=== PATIENT | female | born 1980 | race Caucasian/White ===

== ENCOUNTER 2018-02-07 17:50 | Emergency (ER) | payer SELFPAY ==
[2018-02-07 18:24] VITALS: BP 147/100; PULSE 63; RESP 16; TEMP 36.7; O2SAT 97; BMI 28.3
--- NOTE | 2018-02-07 18:30 | HMH.EDUTC ---
[facility] Disposition Clinical Impression: Skin problem Disposition: Home, Self-Care Condition on Discharge: Good Instructions: DI for Boils, Boil Additional Instructions: Call Surgical Clinic on Saturday for appointment If worsening of symptoms or life threating issues such as streaks, redness, or trouble breathing go straight to ER Follow up with family doctor in 12-24 hours or sooner if no improvement or worsening of symptoms Return if needed Take medication as prescribed Warm compresses to area may help to reduce pain and swelling Prescriptions: cephALEXin [Keflex 500mg Cap] 500 mg PO QID #40 cap Sulfamethoxazole/Trimethoprim [Bactrim DS tablet] 1 each PO BID #20 tab Referrals: Cody Gamble [Primary Care Provider] - Time of Disposition: 18:57 Medical Decision Making - Medical Records Medical records reviewed: Yes: I reviewed the patient's medical records. Vital Signs: 02/07/18 18:24 Temperature 98.1 F Temperature Source Temporal Artery Scan Pulse Rate [Right] 63 Respiratory Rate 16 Blood Pressure [Right Arm] 147/100 Blood Pressure Mean [Right Arm] 115 Blood Pressure Source [Right Arm] Automatic Cuff Blood Pressure Position [Right Arm] Sitting 02 Sat by Pulse Oximetry 97 Oxygen Delivery Method Room Air - Ray Inquiry Pt receiving controlled substance: No Ray was queried for this patient: No - Reevaluation(s) Time: 18:50 Reevaluation #1: No puss or drainage from the area observed could not obtain a wound culture at this time Patient state that she has had area like this before and MD aspirated puss from it to put her on antibiotic Patient informed due to location on face it is recommended that she see Dr Lozano in Surgery for possible treatment/drainage [facility] HPI - General Stated complaint: Boil L side of Face Mode of Arrival: Ambulatory Source of Information: Patient Limitations: No Limitations Description of Symptoms (Recalled from Triage Doc. by RN): ABCESS ON FACE HEENT Symptoms (Recalled from RN notes): No Resp Symptoms (Recalled from RN notes): No Skin Symptoms (Recalled from RN notes): Yes MS Symptoms (Recalled from RN notes): No Functional Status (Recalled from RN notes): N - History of Present Illness Provider Complaint: Patient state that she began to have swelling on the left lower jaw area State that she has a history of skin abcesses State that 3 days ago she began to have a small round area on left lower face State that she attempted to pop the area at home with latch pin however was unable to get anything out. State that today it continued to get bigger and now about dime sized and hard so she came in to get antibiotics - Related Data Home Medications Medication Instructions Recorded Confirmed alprazolam 0.5 mg tablet 0.5 mg PO TID tab 01/23/18 aspirin 81 mg tablet,delayed 81 mg PO DAILY tab 01/24/18 release Previous Rx's Medication Instructions Recorded bisoprolol fumarate 5 mg tablet 5 mg PO DAILY #30 tab 01/24/18 omeprazole 40 mg capsule,delayed 40 mg PO DAILY #30 cap 01/24/18 release Sulfamethoxazole/Trimethoprim 1 each PO BID #20 tab 02/07/18 [Bactrim DS tablet] cephALEXin [Keflex 500mg Cap] 500 mg PO QID #40 cap 02/07/18 Allergies Allergy/AdvReac Type Severity Reaction Status Date / Time tramadol AdvReac Nausea Verified 01/23/18 11:53 tylenol codeine #3 AdvReac Nausea Uncoded 01/23/18 11:53 - Worker's Comp Is this a Worker's Comp case?: No [facility] History I have reviewed the patient's past medical history: Yes Medical History: Reports:: Anxiety, Gastroesophageal Reflux Disease(GERD), Hyperlipidemia Other Surgeries: Yes: Dilation and Curettage, Hysterectomy-Total Comment: Cholecystectomy - Social History Smoking Status: Current every day smoker Tobacco Type: cigarettes # Packs/Day (cigarettes): 1 Alcohol Intake: never - Psychiatric History Expresses thoughts of harming self/others: None Suicide Plan Description: No Plan [facility]
[2018-02-07 19:02] VITALS: BP 143/90; PULSE 63; RESP 16; TEMP 36.7
== END 2018-02-07 19:03 | disposition home or self-care (01) ==
PROVIDERS: Emergency Provider Nurse Practitioner; Family Provider Internal Medicine Hematology & Oncology; PCP Family Medicine
DX: L02.01 Cutaneous abscess of face (principal); K21.9 Gastro-esophageal reflux disease without esophagitis; E78.5 Hyperlipidemia, unspecified; F41.9 Anxiety disorder, unspecified; F17.210 Nicotine dependence, cigarettes, uncomplicated; Z79.82 Long term (current) use of aspirin; Z88.6 Allergy status to analgesic agent
CPT/HCPCS: 99202

== ENCOUNTER → 2018-04-02 08:13 | Outpatient (CLI) | payer OTHER, SELFPAY ==
--- NOTE | 2018-04-02 08:16 | CA_ITS ---
PROCEDURE: 2-D M-mode and color Doppler study INDICATIONS FOR THE TEST: Chest pain + COPD Heart Murmur Tobacco Smoking+ Palpitations Fatigue Syncope Edema+ Hypertension Diabetes Mellitus Rheumatic Fever SOB+MCDOWELL Obesity Hyperlipidemia+ Family History HD Additional History PATIENT INFORMATION HEIGHT: 65 WEIGHT:185 GENDER: Female B/P:125/86 2-D/M-MODE INTERPRETATION: 2-D MEASUREMENTS OBSERVED VALUES IN CMS Right Ventricular Dimension (RVDd) 2.5 Interventricular Septum (Thickness)(IVsd) 1.1 Left Ventricular Internal Dimensions(LVIDd) 4.5 Left Ventricular Posterior Wall (Thickness)(LVPWd) 0.9 Aortic Root 2.3 Aortic Cusp Separation 2.1 Left Atrial Dimensions (LAD) 3.9 2D 1. Left atrium is normal size, left ventricle is normal size, there is no concentric left ventricular hypertrophy, visually estimated ejection fraction of 55% with no obvious regional wall motion abnormality. 2. The right atrium and right ventricle are normal size and contractility. 3. The aortic, mitral and tricuspid valvular grossly normal. 4. The pulmonic valve is poorly visualized. 5. No significant pericardial effusion noted. DOPPLER INTERROGATION: Doppler interrogation of the aortic, mitral and tricuspid valvular presence of mild mitral and tricuspid regurgitation, tricuspid and jet velocity is insufficient for calculation of the right ventricular systolic pressure, diastolic parameters are within normal range. CONCLUSION: 1. Normal left ventricular size, preserved left ventricular systolic pressure, visually estimated ejection fraction 55% with no obvious regional wall motion abnormality, diastolic parameters are within normal range. 2. Mild mitral and tricuspid regurgitation 3. No significant pericardial effusion noted.
== END ==
PROVIDERS: Family Provider Internal Medicine Hematology & Oncology; PCP Family Medicine; Visit Provider Internal Medicine
DX: R07.89 Other chest pain (principal)
CPT/HCPCS: 93017; 93306

== ENCOUNTER 2020-03-28 14:55 | Emergency (ER) | payer MEDICAID, SELFPAY ==
--- NOTE | 2020-03-28 14:51 | ECG_ITS ---
APPROVED REPORT Exam: Resting ECG HR:102 bpm ECG Measurements Heart Rate 102 AXES WI 136 P 61 QRSd 84 QRS 91 QT 364 T 48 QTc 474 <Conclusion> Sinus tachycardia Incomplete RBBB Rightward axis Borderline ECG Electronically signed by : Lino Alatorre, 03/29/2020 14:31:19
[2020-03-28 14:56] VITALS: BP 141/90; PULSE 106; RESP 20; TEMP 36.9; O2SAT 100; BMI 29.1
--- NOTE | 2020-03-28 15:06 | XR_ITS ---
PROCEDURE: XR CHEST PORTABLE CLINICAL HISTORY: chest pain COMPARISON: CXR CHEST(2 VIEWS-NOT PORTABLE) from 01/30/2017 CXR CHEST(2 VIEWS-NOT PORTABLE) from 09/06/2017 FINDINGS: The cardiomediastinal silhouette and pulmonary vascularity are within normal limits. The lungs are clear without infiltrates, suspicious nodules, or pleural effusions. No acute bony abnormalities. IMPRESSION: No acute findings. Dictated by: Pawel Winter MD 03/28/2020 15:22 Electronically signed by Pawel Witner MD in [place] 03/28/2020 15:22
--- NOTE | 2020-03-28 15:12 | HMH.EDANX ---
ED Disposition Clinical Impression: Acute anxiety Disposition: Home, Self-Care Condition on Discharge: Good Instructions: Anxiety and Panic Attacks (Alternative Therapy), Yoga May Help Reduce Anxiety and Stress, DI for Anxiety -- Adult Referrals: Provider,Referral, [Primary Care Provider] - 3 days - Critical Care Critical Care Time: No Attestation: On 03/28/20, the high probability of a clinically significant, sudden or life threatening deterioration of the following system(s) required my full and direct attention, intervention and personal management. The time I documented below is in addition to time spent performing reported procedures but includes the following listed in this critical care notation. Medical Decision Making - Medical Records Medical records reviewed: Yes: I reviewed the patient's medical records. - Ray Inquiry Pt receiving controlled substance: No Vital Signs: 03/28/20 14:56 Temperature 98.4 F Temperature Source Oral Pulse Rate [Right] 106 H Respiratory Rate 20 Blood Pressure [Right Arm] 141/90 H Blood Pressure Mean [Right Arm] 107 02 Sat by Pulse Oximetry 100 Orders (Tests/Meds): ORDERS Category Date Time Status Chest XR -- portable [XR chest portable] Stat Exams 03/28/20 15:06 Taken - Radiology Data #1 Image Reviewed: Yes I reviewed the patient's radiology image Preliminary Findings: Normal/NAD - ECG Data Tracing #1 I reviewed this ECG and interpreted as documented below: EKG at 1451 shows a sinus rhythm with a rate of 102. No acute ST segment elevation or depression. No hyperacute T waves. Normal intervals. EKG interpreted by me. Medical Decision Narrative: Patient here with anxiety and increased epigastric pain intermittently for several years. Most recent episode occurred today which prompted her visit here. Very low suspicion for ACS. EKG shows no signs of acute ischemia and chest x-ray shows no pneumonia, pneumothorax, pulmonary edema. She is asymptomatic at this time. Appropriate for outpatient follow-up with her primary care provider. We discussed other options for treatment of her anxiety including counseling and SSRIs, other nonaddictive options besides Xanax. She agrees to seek counseling and will follow-up with her PCP. Anxiety HPI - General Chief Complaint: PAIN Stated Complaint: anxiety,chest pain, shaking Time Seen by Provider: 03/28/20 15:13 Mode of Arrival: Ambulatory Limitations: No Limitations Description of Symptoms (Recalled from ER Triage Doc. by RN): States for several months she has been having episodes of CP, feeling shaking and dizzy. Denies soa, fever, or travel hx. - History of Present Illness HPI narrative: This is a 39-year-old female with a past medical history significant for anxiety, smoking who presents to the emergency department for evaluation of epigastric burning in association with exercising that occurred today just prior to arrival. States that she also sometimes gets dizzy with these episodes. She has had these episodes intermittently for 2 years and they have been attributed to panic attacks. They are sometimes associated with exercise, and sometimes not. She has seen cardiology for these episodes, had a stress test and was cleared from a cardiology standpoint. She has refused to take medication for anxiety because she used to take Xanax and did not like how it made her feel. She is tearful telling me all of this and states that she does not like feeling this way, but does not want to take medicine for anxiety. Currently she is asymptomatic. - Related Data Home Medications: Home Medications Medication Instructions Recorded Confirmed alprazolam 0.5 mg tablet 0.5 mg PO TID PRN tab 01/23/18 04/04/18 aspirin 81 mg tablet,delayed 81 mg PO DAILY tab 01/24/18 04/04/18 release Allergies/Adverse Reactions: Allergies Allergy/AdvReac Type Severity Reaction Status Date / Time tramadol A
[2020-03-28 16:01] VITALS: BP 141/90; PULSE 106; RESP 20; TEMP 36.9; O2SAT 100
[2020-04-14 10:31] LABS: POC Glucose,Bedside 134 (70-110)
== END 2020-03-28 16:02 | disposition home or self-care (01) ==
PROVIDERS: Emergency Provider Emergency Medicine
DX: F41.9 Anxiety disorder, unspecified (principal); F17.210 Nicotine dependence, cigarettes, uncomplicated
CPT/HCPCS: 71045; 82962; 93005; 99282

== ENCOUNTER → 2020-12-16 13:18 | Outpatient (CLI) | payer BC, SELFPAY ==
--- NOTE | 2020-12-16 13:19 | CT_ITS ---
PROCEDURE: CT CERVICAL SPINE WO CON CLINICAL INDICATION: pain right side neck Fell 2 weeks ago, Neck injury with pain, contusion/abrasion or hematoma, cervical sprain/strain the COMPARISON: No exams were available for comparison TECHNIQUE: Axial images obtained with sagittal and coronal reformats. All CT scans at the facility use one or more dose reduction, viz: automated exposure control, ma/kV adjustment per patient size (including targeted exams where dose is matched to indication, i.e. head), or iterative reconstruction technique. Axial spiral CT scanning performed of the cervical spine beginning at the base of the skull and continuing to the upper T-spine. 3-D multiplanar reconstruction with 3-D manipulation of volumetric data set in image rendering was completed by the radiologist and/or technologist with the supervision of the radiologist on independent workstation. FINDINGS: There is normal alignment. No fracture or dislocation is evident. No lytic or blastic change. There is minimal uncovertebral hypertrophy on at C4-C5 C5-C6 and C6-C7. This is causing minimal left lateral recess narrowing at these levels. The lung apices are clear. There are few scattered small cervical lymph nodes. IMPRESSION: 1. No acute fracture. 2. Minimal uncovertebral hypertrophy on the left from C4-C7. Dictated by: Pawel Winter MD 12/17/2020 06:37 Pawel Winter MD in [place] 12/17/2020 06:37
== END ==
PROVIDERS: PCP Family Medicine; Visit Provider Family Medicine
DX: M54.2 Cervicalgia (principal)
CPT/HCPCS: 72125

== ENCOUNTER 2021-06-12 19:53 | Emergency (ER) | payer BC, SELFPAY ==
--- NOTE | 2021-06-12 19:50 | ECG_ITS ---
APPROVED REPORT Exam: Resting ECG HR:74 bpm ECG Measurements Heart Rate 74 AXES MT 134 P 56 QRSd 84 QRS 23 QT 414 T 40 QTc 459 Conclusion Normal sinus rhythm Nonspecific T wave abnormality Abnormal ECG Electronically signed by : Compa Rose, 06/14/2021 21:39:53
[2021-06-12 19:53] VITALS: BP 146/88; PULSE 71; RESP 19; TEMP 36.8; O2SAT 98; BMI 28.3
[2021-06-12 20:00] VITALS: BMI 28.3
--- NOTE | 2021-06-12 20:00 | XR_ITS ---
PROCEDURE INFORMATION: Exam: XR Chest Exam date and time: 06/12/2021 8:00 PM Age: 40 years old Clinical indication: Other: Center of chest and upper abdomen pain; Patient HX: Pain in center of chest and upper abdomen. Smoker, no chest surgeries. ; Additional info: Chest pain TECHNIQUE: Imaging protocol: XR of the chest. Views: 2 views. COMPARISON: CR XR CHEST PORTABLE 03/28/2020 3:18 PM FINDINGS: Lungs: Unremarkable. No consolidation. Pleural spaces: Unremarkable. No pleural effusion. No pneumothorax. Heart/Mediastinum: Unremarkable. No cardiomegaly. Bones/joints: Unremarkable. IMPRESSION: No acute findings.
[2021-06-12 20:14] LABS: Basophils # 0.1 K/mm3 (0-0.2); Basophils % 0.8 % (0.1-2.0); Eosinophils # 0.2 K/mm3 (0.0-0.4); Eosinophils % 2.2 % (0.1-12.0); Hematocrit 42.7 % (37.0-47.0); Hemoglobin 14.3 g/dL (12.2-16.2); Lymphocytes # 2.9 K/mm3 (0.7-4.5); Lymphocytes % 30.7 % (10-50); Mean Corpuscular HGB Conc 33.6 g/dL (31.8-35.4); Mean Corpuscular Hemoglobin 29.8 pg (27.0-31.2); Mean Corpuscular Volume 88.5 fl (81-99); Mean Platelet Volume 7.6 fl (7.4-10.4); Monocytes # 0.6 K/mm3 (0.1-1.0); Monocytes % 6.2 % (1.7-9.3); Neutrophils # 5.6 K/mm3 (1.8-7.8); Platelet Count 244 K/mm3 (142-424); Red Blood Count 4.82 M/mm3 (4.20-5.40); Red Cell Distribution Width 13.7 % (11.5-17.5); White Blood Count 9.4 K/mm3 (4.8-10.8)
[2021-06-12 20:15] LABS: Coronavirus 19, PCR Not Detected (NotDetected); Influenza A, PCR Not Detected (NotDetected); Influenza B, PCR Not Detected (NotDetected)
[2021-06-12 20:21] LABS: Alanine Aminotransferase 40 U/L (12-78); Albumin Level 4.4 g/dl (3.5-5.0); Alkaline Phosphatase 102 U/L (38-126); Anion Gap 13.5 mEq/L (5-15); Aspartate Amino Transferase 39 U/L (14-36); Bilirubin,Direct 0.3 mg/dl (0.0-0.4); Bilirubin,Total 0.3 mg/dl (0.2-1.3); Blood Urea Nitrogen 11 mg/dl (7-17); Calcium 9.2 mg/dl (8.4-10.2); Carbon Dioxide 27 mmol/L (22.0-30.0); Chloride 108 mmol/L (98-107); Creatinine Clearance Estimated 133 mL/min (50-200); Estimated Glomerular Filt Rate 94 ml/min (>60); GFR (African American) 113 ML/MIN (>60); Glucose 92 mg/dl (74-100); Potassium 3.5 mmoL/L (3.5-5.1); Sodium 145 mmol/L (136-145); Total Protein,Serum 7.7 g/dl (6.3-8.2)
[2021-06-12 20:27] LABS: C-Reactive Protein 4.8 mg/L (0-4)
[2021-06-12 20:41] LABS: Procalcitonin 0.044 ng/mL (0.0-2.0)
[2021-06-12 20:49] LABS: Erythrocyte Sedimentation Rate 74 mm/hr (0-20)
[2021-06-12 21:01] VITALS: BP 116/72; PULSE 67; RESP 18; O2SAT 98
[2021-06-12 21:02] LABS: Troponin I < 0.01 ng/ml (0.00-0.034)
[2021-06-12 21:21] LABS: Microscopic, Urine URINE MICROSCOPIC (MICROSCOPIC)
[2021-06-12 21:24] LABS: Appearance,Urine CLEAR (Clear); Bilirubin,Urine Negative (Negative); Blood, Urine 1+ (Negative); Color,Urine YELLOW (Yellow); Glucose,Urine (UA) Negative (Negative); Ketones,Urine Negative (Negative); Leukocyte Esterase,Urine Negative (Negative); Nitrate,Urine Negative (Negative); PH,Urine 6.5 (5.0-8.5); Protein,Urine Negative (Negative); Urobilinogen,Urine 0.2 EU/dl (0.2)
[2021-06-12 21:30] VITALS: BP 117/71; PULSE 62; RESP 20; O2SAT 98
[2021-06-12 22:00] VITALS: BP 109/70; PULSE 62; RESP 16; O2SAT 98
[2021-06-12 22:02] LABS: Amorphous Sediment,Urine Trace /lpf; Squamous Epithelial Cell,Urine Occasional #/hpf (0-5)
--- NOTE | 2021-06-12 22:21 | HMH.EDNVD ---
ED Disposition Clinical Impression: Partial bowel obstruction Qualifiers: Intestinal obstruction type: unspecified Qualified Code(s): K56.600 - Partial intestinal obstruction, unspecified as to cause Disposition: Home, Self-Care Condition on Discharge: Good Instructions: DI for Small Bowel Obstruction Additional Instructions: see pcp for follow up and return if needed Referrals: Rishi Perry MD [Primary Care Provider] - - Critical Care Critical Care Time: No Attestation: On 06/12/21, the high probability of a clinically significant, sudden or life threatening deterioration of the following system(s) required my full and direct attention, intervention and personal management. The time I documented below is in addition to time spent performing reported procedures but includes the following listed in this critical care notation. Medical Decision Making - Medical Records Medical records reviewed: Yes: I reviewed the patient's medical records. - Ray Inquiry Pt receiving controlled substance: No Vital Signs: 06/12/21 19:53 Temperature 98.3 F Temperature Source Oral Pulse Rate [Right] 71 Respiratory Rate 19 Blood Pressure [Right Arm] 146/88 H Blood Pressure Mean [Right Arm] 107 Blood Pressure Source [Right Arm] Automatic Cuff 02 Sat by Pulse Oximetry 98 Oxygen Delivery Method Room Air - Lab Data Lab results reviewed: Yes: I reviewed the patient's lab results. Lab Results 06/12/21 19:55: WBC 9.4, RBC 4.82, Hgb 14.3, Hct 42.7, MCV 88.5, MCH 29.8, MCHC 33.6, RDW 13.7, Plt Count 244, MPV 7.6, Neut % (Auto) 60.0, Lymph % (Auto) 30.7, [place] % (Auto) 6.2, Eos % (Auto) 2.2, Baso % (Auto) 0.8, Neut # (Auto) 5.6, Lymph # (Auto) 2.9, [place] # (Auto) 0.6, Eos # (Auto) 0.2, Baso # (Auto) 0.1 06/12/21 19:55: Sodium 145, Potassium 3.5, Chloride 108 H, Carbon Dioxide 27, Anion Gap 13.5, BUN 11, Creatinine 0.70, Estimated Creat Clear 133, Estimated GFR 94, Est GFR ( Amer) 113, Glucose 92, Calcium 9.2, Total Bilirubin 0.3, Direct Bilirubin 0.3, Conjugated Bilirubin 0.0, Indirect Bilirubin 0.0, Unconjugated Bilirubin 0.0, AST 39 H, ALT 40, Alkaline Phosphatase 102, Troponin I < 0.01, C-Reactive Protein 4.8 H, Total Protein 7.7, Albumin 4.4 06/12/21 19:55: ESR 74 H 06/12/21 19:55: Procalcitonin 0.044 06/12/21 19:55: Lipase 127 06/12/21 20:10: SARS-CoV-2 (PCR) Not detected, Influenza A Untype (PCR) Not detected, Influenza Type B (PCR) Not detected 06/12/21 21:17: Urine Color Yellow, Urine Appearance Clear, Urine pH 6.5, Ur Specific [place] 1.010, Urine Protein Negative, Urine Glucose (UA) Negative, Urine Ketones Negative, Urine Blood 1+, Urine Nitrate Negative, Urine Bilirubin Negative, Urine Urobilinogen 0.2, Ur Leukocyte Esterase Negative, Urine RBC 3-5, Urine WBC 3-5, Ur Squamous Epith Cells Occasional, Amorphous Sediment Trace Result diagrams: 06/12/21 19:55 06/12/21 19:55 Orders (Tests/Meds): ED MEDICATIONS Generic Name Dose Route Start Last Admin Trade Name Freq PRN Reason Stop Dose Admin Sodium Chloride 1,000 mls @ 999 mls/hr 06/12/21 20:30 06/12/21 20:30 Sod Chlor 0.9% 1000ml Bag IV 06/12/21 21:30 999 mls/hr .Q1H1M MARINA Administration Sodium Chloride 8 ml 06/12/21 20:16 Sodium Chloride 0.9% 10ml Vial IV 07/12/21 20:15 NEEDED PRN dilute pepcid Discontinued Medications Generic Name Dose Route Start Last Admin Trade Name Freq PRN Reason Stop Dose Admin Aspirin 324 mg 06/12/21 20:16 06/12/21 20:16 Aspirin 81mg Chewable Tablet PO 06/12/21 20:17 324 mg ONCE ONE Administration Famotidine 20 mg 06/12/21 20:16 06/12/21 20:30 Famotidine 20mg/2ml Vial IV 06/12/21 20:17 20 mg ONCE ONE Administration Iopamidol 75 ml 06/12/21 23:01 06/12/21 23:02 Iopamidol-370 (76%);100ml Bottle IV 06/12/21 23:02 75 ml ONCE ONE Administration Metoclopramide HCl 10 mg 06/12/21 20:16 06/12/21 20:30 Metoclopramide Hcl 10mg/2ml Vial IVP 06/12/21 20:17 10 mg ON
--- NOTE | 2021-06-12 22:25 | CT_ITS ---
PROCEDURE INFORMATION: Exam: CT Abdomen And Pelvis With Contrast Exam date and time: 06/12/2021 10:25 PM Age: 40 years old Clinical indication: Nausea and vomiting and other: Epigastric pain; Prior surgery; Surgery date: 6+ months; Surgery type: Hysterectomy gb; Additional info: Epigastric right to left upper abd pain 4 days TECHNIQUE: Imaging protocol: Computed tomography of the abdomen and pelvis with contrast. Radiation optimization: All CT scans at this facility use at least one of these dose optimization techniques: automated exposure control; mA and/or kV adjustment per patient size (includes targeted exams where dose is matched to clinical indication); or iterative reconstruction. Contrast material: ISOVUE; Contrast volume: 75 ml; Contrast route: IV; COMPARISON: ABDPELW/O CT ABD PELVIS W/O CONTRAST 06/05/2015 6:08 PM FINDINGS: Liver: Normal. No mass. Gallbladder and bile ducts: The gallbladder has been removed. Pancreas: Normal. No ductal dilation. Spleen: Normal. No splenomegaly. Adrenal glands: Normal. No mass. Kidneys and ureters: Normal. No hydronephrosis. Stomach and bowel: There is fecal like material in the terminal ileum. The terminal ileum is dilated at 3.4 cm in diameter. Appendix: No evidence of appendicitis. Intraperitoneal space: Unremarkable. No free air. No significant fluid collection. Vasculature: Unremarkable. No abdominal aortic aneurysm. Lymph nodes: Unremarkable. No enlarged lymph nodes. Urinary bladder: Unremarkable as visualized. Reproductive: The uterus has been removed. Bones/joints: Unremarkable. No acute fracture. Soft tissues: Small fat containing umbilical hernia. IMPRESSION: 1. Dilated terminal ileum with fecal like material concerning for partial bowel obstruction. 2. Status post cholecystectomy and hysterectomy.
[2021-06-12 22:31] VITALS: BP 127/82; PULSE 65; RESP 14; O2SAT 98
--- NOTE | 2021-06-12 22:40 | PC.NURSE ---
Pt to rad
[2021-06-12 22:42] LABS: Lipase 127 U/L (23-300)
--- NOTE | 2021-06-12 23:08 | PC.NURSE ---
pt back from CT
[2021-06-12 23:28] LABS: Amylase 68 U/L (30-110)
[2021-06-12 23:42] LABS: Troponin I < 0.01 ng/ml (0.00-0.034)
[2021-06-13 00:12] VITALS: BP 127/87; PULSE 65; RESP 14; TEMP 36.8; O2SAT 98
== END 2021-06-13 00:14 | disposition home or self-care (01) ==
PROVIDERS: Emergency Provider Emergency Medicine; PCP Family Medicine
DX: K56.600 Partial intestinal obstruction, unspecified as to cause (principal); K21.9 Gastro-esophageal reflux disease without esophagitis; E78.5 Hyperlipidemia, unspecified; Z20.822 Contact with and (suspected) exposure to COVID-19; F17.210 Nicotine dependence, cigarettes, uncomplicated; Z79.899 Other long term (current) drug therapy
CPT/HCPCS: 71046; 74177; 80048; 80076; 81001; 82150; 83690; 84145; 84484; 85025; 85651; 86140; 93005; 96365; 96375; 99283; J2405; Q9967; U0003

== ENCOUNTER 2021-06-13 15:03 | Observation (INO) | payer BC, SELFPAY ==
[2021-06-13] VITALS (9 sets, daily range): BP systolic 114–156; BP diastolic 68–82; PULSE 53–81; RESP 16; TEMP 36.7–37.1; O2SAT 95–98; BMI 28.3; BMI 29.9
--- NOTE | 2021-06-13 15:38 | HMH.EDGENADL ---
ED Disposition Clinical Impression: Partial small bowel obstruction Disposition: Admitted as Observation Condition on Discharge: Fair Referrals: Rishi Perry MD [Primary Care Provider] - - Critical Care Critical Care Time: No Attestation: On 06/13/21, the high probability of a clinically significant, sudden or life threatening deterioration of the following system(s) required my full and direct attention, intervention and personal management. The time I documented below is in addition to time spent performing reported procedures but includes the following listed in this critical care notation. Medical Decision Making - Medical Records Medical records reviewed: Yes: I reviewed the patient's medical records. MR Comment: Reviewed emergency department record from 06/12/2021 along with the lab results and CT scan result. - Ray Inquiry Pt receiving controlled substance: No Ray was queried for this patient: Yes Vital Signs: 06/13/21 15:05 06/13/21 15:50 Temperature 98.1 F Temperature Source Oral Pulse Rate 81 Pulse Rate [Left] 78 Respiratory Rate 16 Blood Pressure 135/75 Blood Pressure [Right Arm] 156/68 H Blood Pressure Mean [Right Arm] 97 Blood Pressure Source Automatic Cuff Blood Pressure Source [Right Arm] Automatic Cuff Blood Pressure Position Sitting 02 Sat by Pulse Oximetry 98 96 Oxygen Delivery Method Room Air Room Air - Lab Data Lab Results 06/13/21 15:40: WBC 11.2 H, RBC 5.04, Hgb 14.9, Hct 45.3, MCV 89.8, MCH 29.5, MCHC 32.8, RDW 13.0, Plt Count 250, MPV 7.5, Neut % (Auto) 86.0 H, Lymph % (Auto) 10.3, [place] % (Auto) 3.0, Eos % (Auto) 0.5, Baso % (Auto) 0.1, Neut # (Auto) 9.7 H, Lymph # (Auto) 1.2, [place] # (Auto) 0.3, Eos # (Auto) 0.1, Baso # (Auto) 0.0, Total Counted 100, Neutrophils % (Manual) 86 H, Band Neutrophils % 5.0, Lymphocytes % (Manual) 8 L, Monocytes % (Manual) 1 L, Platelet Estimate Normal, RBC Morphology Normal 06/13/21 15:40: Sodium 143, Potassium 3.4 L, Chloride 110 H, Carbon Dioxide 23, Anion Gap 13.4, BUN 9, Creatinine 0.60, Estimated Creat Clear 155, Estimated GFR 112, Est GFR ( Amer) 135, Glucose 195 H D, Calcium 9.4, Total Bilirubin 0.4, AST 32, ALT 43, Alkaline Phosphatase 103, Total Protein 8.3 H, Albumin 4.6, Globulin 3.7 H, Albumin/Globulin Ratio 1.2, Lipase 58 Result diagrams: 06/13/21 15:40 06/13/21 15:40 - Physician Consults Physician Consulted: Bertha Time: 16:15 Reason -: Admission Comment/Response: Agrees to admit the patient to the hospital. We discussed the patient's clinical information, including history, exam, laboratory and radiology results and ED course. Per hospital procedure, I will write temporary bridge inpatient orders on the patient. Specific orders requested by the admitting physician: Surgery consult, n.p.o., IV fluids. Discussed steroids, he prefers no steroids at this time. General Adult HPI - General Chief complaint: Abdominal Pain Stated complaint: bowel blockage here in ER 06-12-21 Time Seen by Provider: 06/13/21 15:39 Mode of Arrival: Ambulatory Limitations: No Limitations Description of Symptoms (Recalled from ER Triage Doc. by RN): patient was seen last night in the ED for chest pain by Dr. Stone. Tests concluded that patient has a bowel obstruction. Patient was going to be admitted last night but patient refused stating that she needed to go home because today is her daughters birthday. patient states that she doesnt feel good. She states that she is having worse generalized abdominal pain and nausea. patient has not had a bowel movement today. - History of Present Illness HPI narrative: 4 to 5-day history of pain across her upper abdomen, sometimes in the lower abdomen. Vomiting up foamy white stuff. Persistent nausea. Poor appetite. Seen in this emergency department last night by Dr. Stone. CT scan of abdomen and pelvis showed partial small bowel obstruction. She states Dr. Stone wanted to admit her. The p
--- NOTE | 2021-06-13 15:49 | PC.NURSE ---
Calling Dr Perry at this time.
--- NOTE | 2021-06-13 15:55 | PC.NURSE ---
Dr stearns is in a pt room and will return call
[2021-06-13 15:57] LABS: Basophils % 0.1 % (0.1-2.0); Eosinophils # 0.1 K/mm3 (0.0-0.4); Eosinophils % 0.5 % (0.1-12.0); Hematocrit 45.3 % (37.0-47.0); Hemoglobin 14.9 g/dL (12.2-16.2); Lymphocytes # 1.2 K/mm3 (0.7-4.5); Lymphocytes % 10.3 % (10-50); Mean Corpuscular HGB Conc 32.8 g/dL (31.8-35.4); Mean Corpuscular Hemoglobin 29.5 pg (27.0-31.2); Mean Corpuscular Volume 89.8 fl (81-99); Mean Platelet Volume 7.5 fl (7.4-10.4); Monocytes # 0.3 K/mm3 (0.1-1.0); Neutrophils # 9.7 K/mm3 (1.8-7.8); Platelet Count 250 K/mm3 (142-424); Red Blood Count 5.04 M/mm3 (4.20-5.40); White Blood Count 11.2 K/mm3 (4.8-10.8)
[2021-06-13 16:02] LABS: Chloride 110 mmol/L (98-107); Potassium 3.4 mmoL/L (3.5-5.1); Sodium 143 mmol/L (136-145)
[2021-06-13 16:03] LABS: MANUAL DIFFERENTIAL MANUAL DIFFERENTIAL (MANUAL DIFF)
[2021-06-13 16:05] LABS: Alanine Aminotransferase 43 U/L (12-78); Albumin Level 4.6 g/dl (3.5-5.0); Albumin/Globulin Ratio 1.2 (1.1-1.8); Alkaline Phosphatase 103 U/L (38-126); Anion Gap 13.4 mEq/L (5-15); Aspartate Amino Transferase 32 U/L (14-36); Bilirubin,Total 0.4 mg/dl (0.2-1.3); Blood Urea Nitrogen 9 mg/dl (7-17); Calcium 9.4 mg/dl (8.4-10.2); Carbon Dioxide 23 mmol/L (22.0-30.0); Creatinine Clearance Estimated 155 mL/min (50-200); Estimated Glomerular Filt Rate 112 ml/min (>60); GFR (African American) 135 ML/MIN (>60); Globulin 3.7 g/dL (1.3-3.2); Glucose 195 mg/dl (74-100); Lipase 58 U/L (23-300); Total Protein,Serum 8.3 g/dl (6.3-8.2)
[2021-06-13 16:15] LABS: Lymphocytes % 8 % (10-50); Monocytes % 1 % (2-9); Neutrophils % 86 % (42-76); Total Cells Counted 100
[2021-06-13 16:16] LABS: Platelet Estimate Normal; RBC Morphology Normal
--- NOTE | 2021-06-13 16:18 | PC.NURSE ---
Notified plumbing warehouse helper of patient need of bed for admission at this time
--- NOTE | 2021-06-13 17:26 | PC.NURSE ---
report called to Jolene BARONE
--- NOTE | 2021-06-13 20:07 | HMH.GSCON ---
*Admission Date: 06/13/21 *Reason for consult:: Bowel obstruction *History of present illness: Patient is a 40-year-old female from [facility] with a history of Crohn's disease who presented to the emergency department on 06/12/21 with a 4-day history of chest pain, upper abdominal pain, radiation to the back. Work-up in the emergency department at that time included CT scan without oral contrast which revealed findings of dilated terminal ileum. This was consistent with partial bowel obstruction. Patient refused admission. She presented back to the emergency department today (06/13/21) with ongoing symptoms of upper abdominal pain with some nausea and vomiting and poor appetite. She was admitted. She has not had additional imaging. Last bowel movement was yesterday morning. She passed gas yesterday. Prior surgeries include laparoscopic cholecystectomy and laparoscopic assisted vaginal hysterectomy in September 2015. She states that she had similar episode several months ago where she had some vomiting. She has had some ongoing postprandial bloating since then. Review of Systems - Review of Systems Review of systems:: pertinent systems reviewed and negative unless documented below - *Neurologic Reports headache(s) [facility] History Medical History: Reports:: Anxiety, Gastroesophageal Reflux Disease(GERD), Hyperlipidemia Denies:: Cancer, Diabetes Mellitus Type 1, Diabetes Mellitus Type 2, MRSA *Have you ever received a pneumonia vaccine?: No *Have you received a flu vaccine this season?: No Other Surgeries: Yes: Dilation and Curettage, Hysterectomy-Total Amputation: No Fractures: No - *Social History Last grade of school completed: High school graduate Smoking Status: Current every day smoker Tobacco Type: cigarettes # Packs/Day (cigarettes): 1 Alcohol Intake: never Substance Use Type: denies use *Occupational Status:: unemployed Housing: house Household Members: spouse *Travel in the last 8 weeks: None - Psychiatric History Pschychiatric History:: Reports:: Anxiety Family Hx:: No significant family history Meds Home Medications Medication Instructions Recorded Confirmed Type No Known Home Medications 06/12/21 06/13/21 History Allergies Allergy/AdvReac Type Severity Reaction Status Date / Time tramadol AdvReac Nausea Verified 06/13/21 16:55 tylenol codeine #3 AdvReac Mild Nausea Uncoded 06/13/21 16:55 Exam Vital signs and Labs for Last 24 Hours: Temp Pulse Resp BP Pulse Ox 98.5 F 53 L 16 118/71 95 06/13/21 19:33 06/13/21 19:33 06/13/21 19:33 06/13/21 19:33 06/13/21 19:33 Laboratory Results - last 24 hr 06/13/21 15:40: WBC 11.2 H, RBC 5.04, Hgb 14.9, Hct 45.3, MCV 89.8, MCH 29.5, MCHC 32.8, RDW 13.0, Plt Count 250, MPV 7.5, Neut % (Auto) 86.0 H, Lymph % (Auto) 10.3, [place] % (Auto) 3.0, Eos % (Auto) 0.5, Baso % (Auto) 0.1, Neut # (Auto) 9.7 H, Lymph # (Auto) 1.2, [place] # (Auto) 0.3, Eos # (Auto) 0.1, Baso # (Auto) 0.0, Total Counted 100, Neutrophils % (Manual) 86 H, Band Neutrophils % 5.0, Lymphocytes % (Manual) 8 L, Monocytes % (Manual) 1 L, Platelet Estimate Normal, RBC Morphology Normal 06/13/21 15:40: Sodium 143, Potassium 3.4 L, Chloride 110 H, Carbon Dioxide 23, Anion Gap 13.4, BUN 9, Creatinine 0.60, Estimated Creat Clear 155, Estimated GFR 112, Est GFR ( Amer) 135, Glucose 195 H D, Calcium 9.4, Total Bilirubin 0.4, AST 32, ALT 43, Alkaline Phosphatase 103, Total Protein 8.3 H, Albumin 4.6, Globulin 3.7 H, Albumin/Globulin Ratio 1.2, Lipase 58 I & O for Last 24 hours: Intake & Output 06/11/21 06/12/21 06/13/21 06/14/21 11:59 11:59 11:59 11:59 Weight 180 lb Results - Labs 06/13/21 15:40 06/13/21 15:40 Laboratory Results - last 24 hr 06/13/21 15:40: WBC 11.2 H, RBC 5.04, Hgb 14.9, Hct 45.3, MCV 89.8, MCH 29.5, MCHC 32.8, RDW 13.0, Plt Count 250, MPV 7.5, Neut % (Auto) 86.0 H, Lymph % (Auto) 10.3, [place] % (Auto) 3.0, Eos % (Auto) 0.5, Baso % (Auto) 0.1, Neut #
[2021-06-14 03:41] VITALS: BP 116/71; PULSE 53; RESP 16; TEMP 36.7; O2SAT 98
--- NOTE | 2021-06-14 04:05 | PC.NURSE ---
pt is AxOx4, has remained on room air t/o shift, complains of nausea and pain in upper abdomen, treated for pain 2 x per MAR and nausea 1X per MAR this shift, ambulating to BR independently, remains NPO
[2021-06-14 05:00] VITALS: BMI 30.4
--- NOTE | 2021-06-14 06:00 | XR_ITS ---
PROCEDURE INFORMATION: Exam: XR Abdomen Exam date and time: 06/14/2021 6:00 AM Age: 40 years old Clinical indication: Condition or disease; Other: Bowel obstruction TECHNIQUE: Imaging protocol: XR of the abdomen. Views: 2 Views. Upright and supine views. COMPARISON: CT ABDOMEN PELVIS W CON 06/12/2021 10:50 PM FINDINGS: Gastrointestinal tract: Normal. No bowel dilation. Intraperitoneal space: Normal. No free air. Organs: There has been a cholecystectomy. Bones/joints: Unremarkable for age. IMPRESSION: No acute findings.
--- NOTE | 2021-06-14 07:27 | HMH.PHAVTE ---
[facility] Pharmacy VTE Monitoring - Patient Demographics Admission date: 06/13/21 Report Date: 06/14/21 Time: 07:27 Allergies/Adverse Reactions: Patient Allergies acetaminophen [From Tylenol-Codeine #3] Adverse Reaction (Verified 06/14/21 07:21) Nausea codeine [From Tylenol-Codeine #3] Adverse Reaction (Verified 06/14/21 07:21) Nausea tramadol Adverse Reaction (Verified 06/13/21 16:55) Nausea Height: 1.65 m Weight: 82.724 kg Patient Problems: Current Active Problems Partial small bowel obstruction (Acute) - VTE Risk Labs: VTE Related Lab Results Hgb 14.9 g/dL (12.2-16.2) 06/13/21 15:40 Hct 45.3 % (37.0-47.0) 06/13/21 15:40 Plt Count 250 K/mm3 (142-424) 06/13/21 15:40 BUN 9 mg/dl (7-17) 06/13/21 15:40 Creatinine 0.60 mg/dl (0.52-1.04) 06/13/21 15:40 Estimated Creat Clear 155 mL/min (50-200) 06/13/21 15:40 Was VTE Risk Assessment Performed: Yes VTE Score: 0 VTE Risk Level: Very Low Risk - Prophylaxis VTE Prophylaxis Ordered?: Yes Types of VTE Prophylaxis: TEDS Knee High Location of Applied Device: Bilateral Lower Extremeties
[2021-06-14 07:32] VITALS: BP 115/72; PULSE 47; RESP 16; TEMP 36.6; O2SAT 98
[2021-06-14 07:32] LABS: Basophils # 0.1 K/mm3 (0-0.2); Basophils % 0.5 % (0.1-2.0); Eosinophils # 0.1 K/mm3 (0.0-0.4); Eosinophils % 0.8 % (0.1-12.0); Hematocrit 37.4 % (37.0-47.0); Lymphocytes # 3.3 K/mm3 (0.7-4.5); Lymphocytes % 34.5 % (10-50); Mean Corpuscular HGB Conc 32.3 g/dL (31.8-35.4); Mean Corpuscular Hemoglobin 29.6 pg (27.0-31.2); Mean Corpuscular Volume 91.8 fl (81-99); Monocytes # 0.6 K/mm3 (0.1-1.0); Monocytes % 6.7 % (1.7-9.3); Neutrophils # 5.5 K/mm3 (1.8-7.8); Neutrophils % 57.6 % (37.0-80.0); Platelet Count 192 K/mm3 (142-424); Red Blood Count 4.07 M/mm3 (4.20-5.40); White Blood Count 9.5 K/mm3 (4.8-10.8)
[2021-06-14 07:35] LABS: Hemoglobin 12.1 g/dL (12.2-16.2)
[2021-06-14 07:40] LABS: Anion Gap 8.3 mEq/L (5-15); Blood Urea Nitrogen 11 mg/dl (7-17); Carbon Dioxide 28 mmol/L (22.0-30.0); Chloride 111 mmol/L (98-107); Creatinine Clearance Estimated 142 mL/min (50-200); Estimated Glomerular Filt Rate 94 ml/min (>60); GFR (African American) 113 ML/MIN (>60); Glucose 93 mg/dl (74-100); Potassium 4.3 mmoL/L (3.5-5.1); Sodium 143 mmol/L (136-145)
[2021-06-14 08:24] LABS: Calcium 8.4 mg/dl (8.4-10.2)
[2021-06-14 12:55] VITALS: BMI 30.4
--- NOTE | 2021-06-14 13:31 | HMH.GSPN ---
Subjective Narrative: Patient states that she feels about the same. Acute abdominal series this morning reveals no evidence of obstruction, relatively unremarkable. She does state that she has been passing some flatus. Progress Note: A&P Assessment and Plan for All Diagnoses:: No need for surgical intervention at this time. I will order a small bowel follow-through. Exam Vital signs and Labs for Last 24 Hours: Temp Pulse Resp BP Pulse Ox 97.9 F 47 L 16 115/72 98 06/14/21 07:32 06/14/21 07:32 06/14/21 07:32 06/14/21 07:32 06/14/21 07:32 Laboratory Results - last 24 hr 06/13/21 15:40: WBC 11.2 H, RBC 5.04, Hgb 14.9, Hct 45.3, MCV 89.8, MCH 29.5, MCHC 32.8, RDW 13.0, Plt Count 250, MPV 7.5, Neut % (Auto) 86.0 H, Lymph % (Auto) 10.3, [place] % (Auto) 3.0, Eos % (Auto) 0.5, Baso % (Auto) 0.1, Neut # (Auto) 9.7 H, Lymph # (Auto) 1.2, [place] # (Auto) 0.3, Eos # (Auto) 0.1, Baso # (Auto) 0.0, Total Counted 100, Neutrophils % (Manual) 86 H, Band Neutrophils % 5.0, Lymphocytes % (Manual) 8 L, Monocytes % (Manual) 1 L, Platelet Estimate Normal, RBC Morphology Normal 06/13/21 15:40: Sodium 143, Potassium 3.4 L, Chloride 110 H, Carbon Dioxide 23, Anion Gap 13.4, BUN 9, Creatinine 0.60, Estimated Creat Clear 155, Estimated GFR 112, Est GFR ( Amer) 135, Glucose 195 H D, Calcium 9.4, Total Bilirubin 0.4, AST 32, ALT 43, Alkaline Phosphatase 103, Total Protein 8.3 H, Albumin 4.6, Globulin 3.7 H, Albumin/Globulin Ratio 1.2, Lipase 58 06/14/21 06:57: WBC 9.5, RBC 4.07 L, Hgb 12.1 L D, Hct 37.4, MCV 91.8, MCH 29.6, MCHC 32.3, RDW 13.0, Plt Count 192, MPV 8.0, Neut % (Auto) 57.6, Lymph % (Auto) 34.5, [place] % (Auto) 6.7, Eos % (Auto) 0.8, Baso % (Auto) 0.5, Neut # (Auto) 5.5, Lymph # (Auto) 3.3, [place] # (Auto) 0.6, Eos # (Auto) 0.1, Baso # (Auto) 0.1 06/14/21 06:57: Sodium 143, Potassium 4.3 D, Chloride 111 H, Carbon Dioxide 28 D, Anion Gap 8.3, BUN 11, Creatinine 0.70, Estimated Creat Clear 142, Estimated GFR 94, Est GFR ( Amer) 113, Glucose 93 D, Calcium 8.4 D I & O for Last 24 hours: Intake & Output 06/12/21 06/13/21 06/14/21 06/15/21 11:59 11:59 11:59 11:59 Intake Total 1738 / 1738 Balance 1738 / 1738 Weight 182 lb 6 oz 182 lb 15.739 oz - *Routine Abdominal Exam Present: soft. Absent: tenderness
--- NOTE | 2021-06-14 13:33 | FL_ITS ---
PROCEDURE: FL SMALL BOWEL FOLLOW THROUGH CLINICAL INDICATION: ABDOMINAL PAIN, VOMITING, BOWEL OBSTRUCTION COMPARISON: No exams were available for comparison FINDINGS: Fluoroscopy time: 2 minutes and 11 seconds Small bowel is normal in caliber. There is rapid transit of contrast to the large bowel. No small bowel obstruction is evident. There is persistent narrowing at the ileocecal valve. The mucosa here has a slightly ?shaggy ?appearance. No fistula apparent. There is good flow contrast through this region. The remaining small bowel has an unremarkable appearance. IMPRESSION: Persistent narrowing at the ileocecal valve with some mucosal irregularity consistent with regional enteritis. No obstruction apparent. Dictated by: Pawel Winter MD 06/14/2021 17:09 Pawel Winter MD in [place] 06/14/2021 17:09
--- NOTE | 2021-06-14 13:38 | HMH.HP ---
*Admission Date: 06/13/21 *Chief complaint: abd pain *History of present illness: 40-year-old female from [facility] with a history of Crohn's disease who presented to the emergency department with a 4-day history of chest pain, upper abdominal pain, radiation to the back. Work-up in the emergency department at that time included CT scan without oral contrast which revealed findings of dilated terminal ileum. This was consistent with partial bowel obstruction. Patient refused admission. She presented back to the emergency department today (06/13/21) with ongoing symptoms of upper abdominal pain with some nausea and vomiting and poor appetite. She was admitted. She has not had additional imaging. Last bowel movement was yesterday morning. She passed gas yesterday. Prior surgeries include laparoscopic cholecystectomy and laparoscopic assisted vaginal hysterectomy in September 2015. She states that she had similar episode several months ago where she had some vomiting. She has had some ongoing postprandial bloating since then.- per [facility] History I have reviewed the patient's past medical history: Yes Medical History: Reports:: Anxiety, Gastroesophageal Reflux Disease(GERD), Hyperlipidemia Denies:: Cancer, Diabetes Mellitus Type 1, Diabetes Mellitus Type 2, MRSA *Have you ever received a pneumonia vaccine?: No *Have you received a flu vaccine this season?: No Other Surgeries: Yes: Dilation and Curettage, Hysterectomy-Total Amputation: No Fractures: No - *Social History Last grade of school completed: High school graduate Smoking Status: Current every day smoker Tobacco Type: cigarettes # Packs/Day (cigarettes): 1 Alcohol Intake: never Substance Use Type: denies use *Occupational Status:: unemployed Housing: house Household Members: spouse *Travel in the last 8 weeks: None - Psychiatric History Pschychiatric History:: Reports:: Anxiety Family Hx:: No significant family history Review of Systems - Review of Systems Review of systems:: pertinent systems reviewed and negative unless documented below - Constitutional Denies body ache(s), Denies fatigue, Denies weakness - Eyes Denies discharge - ENT Denies bleeding gums, Denies sore throat - *Cardiovascular Reports chest pain, Denies chest pain at rest - *Respiratory Denies change in phlegm color - *Gastrointestinal Reports abdominal pain, Reports cramping, Reports nausea, Reports vomiting - *Genitourinary Denies abnormal periods - *Musculoskeletal Denies joint pain - Integumentary/Breasts Denies sores - *Neurologic Reports headache(s), Denies abnormal hearing - Psychiatric Denies lack of enjoyment - Endocrine Denies excessive sweating - Hematologic/Lymphatic Denies easy bruising - Allergic/Immunologic Denies itchy eyes Meds Home Medications Medication Instructions Recorded Confirmed Type No Known Home Medications 06/12/21 06/13/21 History Allergies Allergy/AdvReac Type Severity Reaction Status Date / Time acetaminophen AdvReac Nausea Verified 06/14/21 07:21 [From Tylenol-Codeine #3] codeine AdvReac Nausea Verified 06/14/21 07:21 [From Tylenol-Codeine #3] tramadol AdvReac Nausea Verified 06/13/21 16:55 Exam Vital signs and Labs for Last 24 Hours: Temp Pulse Resp BP Pulse Ox 97.9 F 47 L 16 115/72 98 06/14/21 07:32 06/14/21 07:32 06/14/21 07:32 06/14/21 07:32 06/14/21 07:32 Laboratory Results - last 24 hr 06/13/21 15:40: WBC 11.2 H, RBC 5.04, Hgb 14.9, Hct 45.3, MCV 89.8, MCH 29.5, MCHC 32.8, RDW 13.0, Plt Count 250, MPV 7.5, Neut % (Auto) 86.0 H, Lymph % (Auto) 10.3, [place] % (Auto) 3.0, Eos % (Auto) 0.5, Baso % (Auto) 0.1, Neut # (Auto) 9.7 H, Lymph # (Auto) 1.2, [place] # (Auto) 0.3, Eos # (Auto) 0.1, Baso # (Auto) 0.0, Total Counted 100, Neutrophils % (Manual) 86 H, Band Neutrophils % 5.0, Lymphocytes % (Manual) 8 L, Monocytes % (Manual) 1 L, Platelet Estimate Normal, RBC Morphology Normal
--- NOTE | 2021-06-14 15:10 | PC.NURSE ---
REport received from Manfred Staples RN
[2021-06-14 16:00] VITALS: BP 163/94; PULSE 49; RESP 18; TEMP 36.3; O2SAT 98
--- NOTE | 2021-06-14 17:13 | P.PN_ITS ---
Subjective Narrative: Reviewed small bowel follow-through films with radiologist. No evidence of any obstruction. There is some luminal narrowing without obstruction at the terminal ileum. Progress Note: A&P (1) Partial small bowel obstruction Status: Acute (2) Chest pain Status: Acute (3) Crohns disease Status: Chronic Assessment and Plan for All Diagnoses:: Preliminary on small bowel follow-through reveals no evidence of obstruction with contrast through to colon. There is some luminal narrowing at the terminal ileum. Will start diet Exam Vital signs and Labs for Last 24 Hours: Temp Pulse Resp BP Pulse Ox 97.4 F L 49 L 18 163/94 H 98 06/14/21 16:00 06/14/21 16:00 06/14/21 16:00 06/14/21 16:00 06/14/21 16:00 Laboratory Results - last 24 hr 06/14/21 06:57: WBC 9.5, RBC 4.07 L, Hgb 12.1 L D, Hct 37.4, MCV 91.8, MCH 29.6, MCHC 32.3, RDW 13.0, Plt Count 192, MPV 8.0, Neut % (Auto) 57.6, Lymph % (Auto) 34.5, [place] % (Auto) 6.7, Eos % (Auto) 0.8, Baso % (Auto) 0.5, Neut # (Auto) 5.5, Lymph # (Auto) 3.3, [place] # (Auto) 0.6, Eos # (Auto) 0.1, Baso # (Auto) 0.1 06/14/21 06:57: Sodium 143, Potassium 4.3 D, Chloride 111 H, Carbon Dioxide 28 D, Anion Gap 8.3, BUN 11, Creatinine 0.70, Estimated Creat Clear 142, Estimated GFR 94, Est GFR ( Amer) 113, Glucose 93 D, Calcium 8.4 D I & O for Last 24 hours: Intake & Output 06/12/21 06/13/21 06/14/21 06/15/21 11:59 11:59 11:59 11:59 Intake Total 1738 / 1738 Balance 1738 / 1738 Weight 182 lb 6 oz 182 lb 15.739 oz
--- NOTE | 2021-06-14 18:34 | PC.NURSE ---
Pt is alert and oriented x4. Lungs are clear, she remains on RA. She has requested prn pain meds and zofran x1 for nausea and pain since assuming care of patient. Relief noted on reassessment. No complaints other than nausea and abd pain. Prn pain meds and zofran administered x1 (since i've assumed care of patient) with relief noted on reassessment.
[2021-06-14 20:00] VITALS: BP 110/72; PULSE 53; RESP 16; TEMP 36.7; O2SAT 97
[2021-06-15 04:00] VITALS: BP 105/68; PULSE 60; RESP 16; TEMP 36.9; O2SAT 97
[2021-06-15 05:00] VITALS: BMI 31.1
[2021-06-15 05:57] LABS: Basophils # 0.1 K/mm3 (0-0.2); Basophils % 0.7 % (0.1-2.0); Eosinophils # 0.1 K/mm3 (0.0-0.4); Eosinophils % 1.4 % (0.1-12.0); Hematocrit 34.4 % (37.0-47.0); Hemoglobin 11.6 g/dL (12.2-16.2); Lymphocytes # 2.9 K/mm3 (0.7-4.5); Lymphocytes % 37.9 % (10-50); Mean Corpuscular HGB Conc 33.7 g/dL (31.8-35.4); Mean Corpuscular Volume 89.2 fl (81-99); Mean Platelet Volume 7.6 fl (7.4-10.4); Monocytes # 0.4 K/mm3 (0.1-1.0); Monocytes % 5.8 % (1.7-9.3); Neutrophils # 4.1 K/mm3 (1.8-7.8); Neutrophils % 54.2 % (37.0-80.0); Platelet Count 181 K/mm3 (142-424); Red Blood Count 3.85 M/mm3 (4.20-5.40); Red Cell Distribution Width 13.5 % (11.5-17.5); White Blood Count 7.6 K/mm3 (4.8-10.8)
[2021-06-15 06:34] LABS: Anion Gap 8.8 mEq/L (5-15); Blood Urea Nitrogen 6 mg/dl (7-17); Carbon Dioxide 25 mmol/L (22.0-30.0); Chloride 113 mmol/L (98-107); Creatinine Clearance Estimated 170 mL/min (50-200); Estimated Glomerular Filt Rate 112 ml/min (>60); GFR (African American) 135 ML/MIN (>60); Glucose 87 mg/dl (74-100); Potassium 3.8 mmoL/L (3.5-5.1); Sodium 143 mmol/L (136-145)
--- NOTE | 2021-06-15 06:58 | P.PN_ITS ---
Subjective Narrative: She states that she feels a bit better . She wishes to go home and have further evaluation as an outpatient. Progress Note: A&P (1) Partial small bowel obstruction Status: Acute (2) Chest pain Status: Acute (3) Crohns disease Status: Chronic Assessment and Plan for All Diagnoses:: Small bowel follow-through reveals no sign of obstruction. She most likely has had an exacerbation of her Crohn's disease. She wishes to go home and have outpatient follow-up. Medical management of Crohn's Gastroenterology evaluation (likely outpatient) pending Exam Vital signs and Labs for Last 24 Hours: Temp Pulse Resp BP Pulse Ox 98.5 F 60 16 105/68 L 97 06/15/21 04:00 06/15/21 04:00 06/15/21 04:00 06/15/21 04:00 06/15/21 04:00 Laboratory Results - last 24 hr 06/14/21 06:57: WBC 9.5, RBC 4.07 L, Hgb 12.1 L D, Hct 37.4, MCV 91.8, MCH 29.6, MCHC 32.3, RDW 13.0, Plt Count 192, MPV 8.0, Neut % (Auto) 57.6, Lymph % (Auto) 34.5, [place] % (Auto) 6.7, Eos % (Auto) 0.8, Baso % (Auto) 0.5, Neut # (Auto) 5.5, Lymph # (Auto) 3.3, [place] # (Auto) 0.6, Eos # (Auto) 0.1, Baso # (Auto) 0.1 06/14/21 06:57: Sodium 143, Potassium 4.3 D, Chloride 111 H, Carbon Dioxide 28 D, Anion Gap 8.3, BUN 11, Creatinine 0.70, Estimated Creat Clear 142, Estimated GFR 94, Est GFR ( Amer) 113, Glucose 93 D, Calcium 8.4 D 06/15/21 05:23: WBC 7.6, RBC 3.85 L, Hgb 11.6 L, Hct 34.4 L, MCV 89.2, MCH 30.0, MCHC 33.7, RDW 13.5, Plt Count 181, MPV 7.6, Neut % (Auto) 54.2, Lymph % (Auto) 37.9, [place] % (Auto) 5.8, Eos % (Auto) 1.4, Baso % (Auto) 0.7, Neut # (Auto) 4.1, Lymph # (Auto) 2.9, [place] # (Auto) 0.4, Eos # (Auto) 0.1, Baso # (Auto) 0.1 06/15/21 05:23: Sodium 143, Potassium 3.8, Chloride 113 H, Carbon Dioxide 25, Anion Gap 8.8, BUN 6 L D, Creatinine 0.60, Estimated Creat Clear 170, Estimated GFR 112, Est GFR ( Amer) 135, Glucose 87, Calcium 8.0 L I & O for Last 24 hours: Intake & Output 06/12/21 06/13/21 06/14/21 06/15/21 11:59 11:59 11:59 11:59 Intake Total 1738 / 1738 2314 / 2314 Balance 1738 / 1738 2314 / 2314 Weight 182 lb 6 oz 187 lb 3 oz Radiology Reports for the Last 24 Hours: Small bowel follow-through yesterday revealed no sign of obstruction. - Constitutional no acute distress - *Routine Respiratory Exam Absent: respiratory distress - *Routine Cardiovascular Exam Present: RRR
[2021-06-15 07:37] VITALS: BP 119/80; PULSE 62; RESP 19; TEMP 36.6; O2SAT 95
--- NOTE | 2021-06-15 13:45 | DIET.NUTRFU ---
Pt states her symptoms are about the same but she is ready to go home, encouraged to f/u as GI OP. She tolerated about 50% of her liquid meals. Pt has been provided with diet edu/counseling for Crohns and encouraged to reach out with questions/concerns at any time post dc.
[2021-06-15 15:12] VITALS: BP 120/72; PULSE 67; RESP 18; TEMP 36.6; O2SAT 96
--- NOTE | 2021-06-15 16:04 | HMH.DCSUM ---
General - General Admission date:: 06/13/21 Discharge date: 06/15/21 HPI HPI: 40-year-old female from [facility] with a history of Crohn's disease who presented to the emergency department with a 4-day history of chest pain, upper abdominal pain, radiation to the back. Work-up in the emergency department at that time included CT scan without oral contrast which revealed findings of dilated terminal ileum. This was consistent with partial bowel obstruction. Patient refused admission. She presented back to the emergency department today (06/13/21) with ongoing symptoms of upper abdominal pain with some nausea and vomiting and poor appetite. She was admitted. She has not had additional imaging. Last bowel movement was yesterday morning. She passed gas yesterday. Prior surgeries include laparoscopic cholecystectomy and laparoscopic assisted vaginal hysterectomy in September 2015. She states that she had similar episode several months ago where she had some vomiting. She has had some ongoing postprandial bloating since then.- per [facility] Hospital Course Hospital Course: 40-year-old female from [facility] with a history of Crohn's disease who presented to the emergency department with a 4-day history of chest pain, upper abdominal pain, radiation to the back. Work-up in the emergency department at that time included CT scan without oral contrast which revealed findings of dilated terminal ileum. This was consistent with partial bowel obstruction. Patient refused admission. She presented back to the emergency department today (06/13/21) with ongoing symptoms of upper abdominal pain with some nausea and vomiting and poor appetite. She was admitted. She has not had additional imaging. Last bowel movement was yesterday morning. She passed gas yesterday. Prior surgeries include laparoscopic cholecystectomy and laparoscopic assisted vaginal hysterectomy in September 2015. She states that she had similar episode several months ago where she had some vomiting. She has had some ongoing postprandial bloating since then.- per [facility] 06/14/21 AbdXR: FINDINGS: Gastrointestinal tract: Normal. No bowel dilation. Intraperitoneal space: Normal. No free air. Organs: There has been a cholecystectomy. Bones/joints: Unremarkable for age. IMPRESSION: No acute findings. Electronically signed by Leigh Mascorro MD General Surgery has seen and recommends: Small bowel follow-through reveals no sign of obstruction. She most likely has had an exacerbation of her Crohn's disease. She wishes to go home and have outpatient follow-up. Medical management of Crohn's Gastroenterology evaluation (likely outpatient) pending A.M. lab work reveals no leukocytosis, hemoglobin and hematocrit stable Chemistries nonactionable 40-year-old female patient sitting up in bed resting quietly, at bedside. She reports she had a good evening, she admits less abdominal pain and nausea during the night. She reports being up walking in room and has tolerated a regular diet. Discussed discharge home with her, she is in agreement to this. She will follow-up with PCP and GI. PLAN: 1. We will discharge home today 2. Follow-up with PCP in 1 week 3. Follow-up with GI in 1 to 2 weeks 4. Bentyl per instruction 5. Zofran per instruction Objective Vital signs: Temp Pulse Resp BP Pulse Ox 97.9 F 67 18 120/72 96 06/15/21 15:12 06/15/21 15:12 06/15/21 15:12 06/15/21 15:12 06/15/21 15:12 no acute distress - *Routine HEENT Exam Head: Present: normocephalic Eye: Present: EOMI ENT: Present: mucous membranes moist - *Routine Neck Exam Present: trachea midline. Absent: tracheal deviation - *Routine Respiratory Exam Present: CTA bilaterally. Absent: accessory muscle use - *Routine Cardiovascular Exam Present: RRR - *Routine Abdominal Exam Present: soft, normoactive bowel sounds, ten
== END 2021-06-15 16:45 | disposition home or self-care (01) ==
LOC: ER 16:39 → 2ND 17:36
PROVIDERS: Nurse Practitioner Family; Admitting Provider Emergency Medicine; Emergency Provider Emergency Medicine; PCP Family Medicine; Visit Provider Family Medicine
DX: K50.90 Crohn's disease, unspecified, without complications (principal); R07.9 Chest pain, unspecified; F17.210 Nicotine dependence, cigarettes, uncomplicated; F41.9 Anxiety disorder, unspecified; K21.9 Gastro-esophageal reflux disease without esophagitis; E78.5 Hyperlipidemia, unspecified
CPT/HCPCS: 74019; 74250; 80048; 80053; 83690; 85007; 85025; 96365; 96375; 99284; 99291; G0378; J2405

== ENCOUNTER 2021-10-04 01:22 | Emergency (ER) | payer MEDICAID, SELFPAY ==
[2021-10-04 01:23] VITALS: BP 139/73; PULSE 84; RESP 18; TEMP 37.2; O2SAT 98; BMI 40.2
--- NOTE | 2021-10-04 01:43 | HMH.EDABDPAI ---
ED Disposition Clinical Impression: Abdominal pain Qualifiers: Abdominal location: generalized Qualified Code(s): R10.84 - Generalized abdominal pain Disposition: Home, Self-Care Condition on Discharge: Fair Instructions: DI for Acute Abdominal Pain Additional Instructions: Please follow-up with your primary care physician in the next day or 2 if your symptoms do not improve. Return to the emergency department if you develop a fever or get worse in any way. Take [id number] ibuprofen and Tylenol as needed. Prescriptions: Dicyclomine HCl [Bentyl 10mg capsule] 10 mg PO QID #30 cap Transmission Status: Pending to [facility] Ondansetron [Ondansetron Odt 8mg Tab] 8 mg PO QID 4 Days #16 tab Transmission Status: Pending to [facility] Referrals: Rishi Perry MD [Primary Care Provider] - - Critical Care Critical Care Time: No Attestation: On 10/04/21, the high probability of a clinically significant, sudden or life threatening deterioration of the following system(s) required my full and direct attention, intervention and personal management. The time I documented below is in addition to time spent performing reported procedures but includes the following listed in this critical care notation. Medical Decision Making - Medical Records Medical records reviewed: Yes: I reviewed the patient's medical records. - Ray Inquiry Pt receiving controlled substance: No Vital Signs: 10/04/21 01:23 Temperature 98.9 F Temperature Source Oral Pulse Rate [Apical] 84 Respiratory Rate 18 Blood Pressure [Right Arm] 139/73 Blood Pressure Mean [Right Arm] 95 Blood Pressure Source [Right Arm] Automatic Cuff Blood Pressure Position [Right Arm] Sitting 02 Sat by Pulse Oximetry 98 Oxygen Delivery Method Room Air - Lab Data Lab results reviewed: Yes: I reviewed the patient's lab results. Lab Results 10/04/21 01:39: Urine Color Yellow, Urine Appearance Clear, Urine pH 6.0, Ur Specific [place] >= 1.030, Urine Protein Negative, Urine Glucose (UA) Negative, Urine Ketones Negative, Urine Blood 1+, Urine Nitrate Negative, Urine Bilirubin Negative, Urine Urobilinogen 0.2, Ur Leukocyte Esterase Negative, Urine WBC Occasional, Urine Bacteria Trace, Urine Mucus 1+ 10/04/21 02:00: WBC 8.4, RBC 4.82, Hgb 14.4, Hct 45.8, MCV 95.0, MCH 29.8, MCHC 31.4 L, RDW 13.3, Plt Count 238, MPV 7.9, Neut % (Auto) 57.1, Lymph % (Auto) 30.4, [place] % (Auto) 7.8, Eos % (Auto) 3.7, Baso % (Auto) 0.9, Neut # (Auto) 4.8, Lymph # (Auto) 2.6, [place] # (Auto) 0.7, Eos # (Auto) 0.3, Baso # (Auto) 0.1 10/04/21 02:00: Sodium 142, Potassium 3.9, Chloride 111 H, Carbon Dioxide 23, Anion Gap 11.9, BUN 9, Creatinine 0.50 L, Estimated Creat Clear 240, Estimated GFR 138, Est GFR ( Amer) 167, Glucose 107 H, Calcium 9.2, Total Bilirubin 0.2, AST 23, ALT 21, Alkaline Phosphatase 98, Total Protein 7.3, Albumin 3.9, Globulin 3.4 H, Albumin/Globulin Ratio 1.1, Lipase 217 Result diagrams: 10/04/21 02:00 10/04/21 02:00 Orders (Tests/Meds): ED MEDICATIONS Discontinued Medications Generic Name Dose Route Start Last Admin Trade Name Hector PRN Reason Stop Dose Admin Ketorolac Tromethamine 60 mg 10/04/21 01:50 10/04/21 01:59 Ketorolac 60mg/2ml Vial IM 10/04/21 01:51 60 mg ONCE ONE Administration Medical Decision Narrative: The patient's work-up in the emergency department did not reveal any life-threatening or dangerous causes for the patient's pain. She has a normal white blood cell count. She has some minor electrolyte abnormalities. None of these are emergent. The patient has had a hysterectomy. Also had a cholecystectomy. The patient is afebrile. Her vital signs are stable. She states that her pain improved some with Toradol in the emergency department. Patient has not had any bloody stools. I do not feel that her pain is secondary to inflammatory bowel disease. Patient will be discharged home in stable and improved conditio
[2021-10-04 01:53] LABS: Microscopic, Urine URINE MICROSCOPIC (MICROSCOPIC)
[2021-10-04 01:55] LABS: Appearance,Urine CLEAR (Clear); Bilirubin,Urine Negative (Negative); Blood, Urine 1+ (Negative); Color,Urine YELLOW (Yellow); Glucose,Urine (UA) Negative (Negative); Ketones,Urine Negative (Negative); Leukocyte Esterase,Urine Negative (Negative); Nitrate,Urine Negative (Negative); Protein,Urine Negative (Negative); Specific Gravity, Urine >= 1.030 (1.005-1.030); Urobilinogen,Urine 0.2 EU/dl (0.2)
[2021-10-04 02:06] LABS: Basophils # 0.1 K/mm3 (0-0.2); Basophils % 0.9 % (0.1-2.0); Eosinophils # 0.3 K/mm3 (0.0-0.4); Eosinophils % 3.7 % (0.1-12.0); Hematocrit 45.8 % (37.0-47.0); Hemoglobin 14.4 g/dL (12.2-16.2); Lymphocytes # 2.6 K/mm3 (0.7-4.5); Lymphocytes % 30.4 % (10-50); Mean Corpuscular HGB Conc 31.4 g/dL (31.8-35.4); Mean Corpuscular Hemoglobin 29.8 pg (27.0-31.2); Mean Platelet Volume 7.9 fl (7.4-10.4); Monocytes # 0.7 K/mm3 (0.1-1.0); Monocytes % 7.8 % (1.7-9.3); Neutrophils # 4.8 K/mm3 (1.8-7.8); Neutrophils % 57.1 % (37.0-80.0); Platelet Count 238 K/mm3 (142-424); Red Blood Count 4.82 M/mm3 (4.20-5.40); Red Cell Distribution Width 13.3 % (11.5-17.5); White Blood Count 8.4 K/mm3 (4.8-10.8)
[2021-10-04 02:08] LABS: Bacteria,Urine Trace /lpf; Mucus,Urine 1+ /lpf; WBC,Urine Occasional #/hpf (0-3)
[2021-10-04 02:10] LABS: Chloride 111 mmol/L (98-107); Potassium 3.9 mmoL/L (3.5-5.1); Sodium 142 mmol/L (136-145)
[2021-10-04 02:13] LABS: Alanine Aminotransferase 21 U/L (12-78); Albumin Level 3.9 g/dl (3.5-5.0); Albumin/Globulin Ratio 1.1 (1.1-1.8); Alkaline Phosphatase 98 U/L (38-126); Anion Gap 11.9 mEq/L (5-15); Aspartate Amino Transferase 23 U/L (14-36); Bilirubin,Total 0.2 mg/dl (0.2-1.3); Blood Urea Nitrogen 9 mg/dl (7-17); Calcium 9.2 mg/dl (8.4-10.2); Carbon Dioxide 23 mmol/L (22.0-30.0); Creatinine Clearance Estimated 240 mL/min (50-200); Estimated Glomerular Filt Rate 138 ml/min (>60); GFR (African American) 167 ML/MIN (>60); Globulin 3.4 g/dL (1.3-3.2); Glucose 107 mg/dl (74-100); Lipase 217 U/L (23-300); Total Protein,Serum 7.3 g/dl (6.3-8.2)
[2021-10-04 02:59] VITALS: BP 134/85; PULSE 79; RESP 18; TEMP 37.2; O2SAT 98
== END 2021-10-04 03:00 | disposition home or self-care (01) ==
PROVIDERS: Emergency Provider Emergency Medicine; PCP Family Medicine
DX: R10.84 Generalized abdominal pain (principal); M25.551 Pain in right hip; K21.9 Gastro-esophageal reflux disease without esophagitis; E78.5 Hyperlipidemia, unspecified; F41.9 Anxiety disorder, unspecified; F17.210 Nicotine dependence, cigarettes, uncomplicated
CPT/HCPCS: 80053; 81001; 83690; 85025; 96372; 99282

== ENCOUNTER → 2021-10-06 15:24 | Outpatient (CLI) | payer MEDICAID, SELFPAY ==
--- NOTE | 2021-10-06 15:27 | XR_ITS ---
PROCEDURE: XR HIP LT 2-3V W/PELVIS CLINICAL INDICATION: HIP PAIN COMPARISON: No exams were available for comparison FINDINGS: No fracture or dislocation is evident. No significant degenerative change. No lytic or blastic change. Unremarkable soft tissues. Minimal degenerative changes of the SI joint with minimal spurring inferiorly. IMPRESSION: Negative left hip. Minimal degenerative changes left SI joint Dictated by: Pawel Winter MD 10/06/2021 16:21 Pawel Winter MD in [facility] 10/06/2021 16:21
--- NOTE | 2021-10-06 15:28 | XR_ITS ---
PROCEDURE: XR HIP RT 2-3V W/PELVIS CLINICAL INDICATION: RT HIP PAIN COMPARISON: No exams were available for comparison FINDINGS: No fracture or dislocation is evident. No significant degenerative change. No lytic or blastic change. Unremarkable soft tissues. IMPRESSION: No acute findings. Dictated by: Pawel Winter MD 10/06/2021 16:18 Pawel Winter MD in [facility] 10/06/2021 16:18
== END ==
PROVIDERS: PCP Family Medicine; Visit Provider Family Medicine
DX: M25.552 Pain in left hip (principal); M25.551 Pain in right hip
CPT/HCPCS: 73502

== ENCOUNTER 2021-10-30 10:05 | Emergency (ER) | payer MEDICAID, SELFPAY ==
[2021-10-30 10:06] VITALS: BP 160/108; PULSE 102; RESP 22; TEMP 36.9; O2SAT 97; BMI 28.3
[2021-10-30 10:27] LABS: Urine Pregnancy, HCG Qual. Negative (Negative)
--- NOTE | 2021-10-30 10:29 | ECG_ITS ---
APPROVED REPORT Exam: Resting ECG HR:90 bpm ECG Measurements Heart Rate 90 AXES UT 124 P 61 QRSd 76 QRS 7 QT 390 T 51 QTc 477 Conclusion Normal sinus rhythm Normal ECG Electronically signed by : Compa Rose MD 10/30/2021 14:19:58
[2021-10-30 10:54] LABS: Basophils # 0.1 K/mm3 (0-0.2); Basophils % 1.4 % (0.1-2.0); Eosinophils # 0.1 K/mm3 (0.0-0.4); Hemoglobin 16.6 g/dL (12.2-16.2); Lymphocytes # 2.1 K/mm3 (0.7-4.5); Lymphocytes % 28.8 % (10-50); Mean Corpuscular HGB Conc 35.3 g/dL (31.8-35.4); Mean Corpuscular Hemoglobin 30.6 pg (27.0-31.2); Mean Corpuscular Volume 86.6 fl (81-99); Mean Platelet Volume 7.7 fl (7.4-10.4); Monocytes # 0.5 K/mm3 (0.1-1.0); Neutrophils # 4.6 K/mm3 (1.8-7.8); Neutrophils % 61.9 % (37.0-80.0); Platelet Count 311 K/mm3 (142-424); Red Blood Count 5.43 M/mm3 (4.20-5.40); Red Cell Distribution Width 13.6 % (11.5-17.5); White Blood Count 7.4 K/mm3 (4.8-10.8)
--- NOTE | 2021-10-30 10:55 | CT_ITS ---
PROCEDURE: CT ABDOMEN PELVIS W CON CLINICAL INDICATION: pain COMPARISON: CT CT ABDOMEN PELVIS W CON from 06/12/2021 TECHNIQUE: IV Contrast: 75ML Isovue 370 Oral Contrast None Axial images obtained with sagittal and coronal reformats. All CT scans at the facility use one or more dose reduction, viz: automated exposure control, ma/kV adjustment per patient size (including targeted exams where dose is matched to indication, i.e. head), or iterative reconstruction technique. FINDINGS: LOWER THORAX: No acute finding ABDOMEN & PELVIS: No focal liver lesion. Prior cholecystectomy. The spleen, adrenal glands, and pancreas has an unremarkable appearance. No renal or ureteral calculi. No hydronephrosis. No evidence of appendicitis. No intestinal obstruction or free air. No evidence of diverticulitis. Mild thickening of the colon. This is nonspecific and may be due to nondistention. No stranding of the No colic fat. Prior hysterectomy. There is tiny umbilical hernia containing fat Mild degenerative changes thoracolumbar spine IMPRESSION: 1. Mild colonic thickening possibly due to nondistention. Mild colitis is not excluded 2. No evidence of appendicitis or obstructing ureteral calculus. Dictated by: Pawel Winter MD 10/30/2021 11:29 Pawel Winter MD in [facility] 10/30/2021 11:29
[2021-10-30 11:06] LABS: Chloride 103 mmol/L (98-107); Potassium 3.6 mmoL/L (3.5-5.1); Sodium 144 mmol/L (136-145)
[2021-10-30 11:09] LABS: Alanine Aminotransferase 31 U/L (12-78); Albumin Level 4.9 g/dl (3.5-5.0); Albumin/Globulin Ratio 1.3 (1.1-1.8); Alkaline Phosphatase 123 U/L (38-126); Anion Gap 15.6 mEq/L (5-15); Aspartate Amino Transferase 39 U/L (14-36); Bilirubin,Total 0.3 mg/dl (0.2-1.3); Blood Urea Nitrogen 9 mg/dl (7-17); Calcium 10.7 mg/dl (8.4-10.2); Carbon Dioxide 29 mmol/L (22.0-30.0); Creatinine Clearance Estimated 155 mL/min (50-200); Estimated Glomerular Filt Rate 112 ml/min (>60); GFR (African American) 135 ML/MIN (>60); Globulin 3.7 g/dL (1.3-3.2); Glucose 96 mg/dl (74-100); Lipase 86 U/L (23-300); Total Protein,Serum 8.6 g/dl (6.3-8.2)
[2021-10-30 11:24] LABS: Troponin I < 0.01 ng/ml (0.00-0.034)
--- NOTE | 2021-10-30 12:32 | HMH.EDGENADL ---
ED Disposition Clinical Impression: Colitis Disposition: Left Against Medical Advice Condition on Discharge: Eloped Instructions: DI for Acute Abdominal Pain Referrals: Rishi Perry MD [Primary Care Provider] - Time of Disposition: 13:41 - Critical Care Critical Care Time: No Attestation: On 10/30/21, the high probability of a clinically significant, sudden or life threatening deterioration of the following system(s) required my full and direct attention, intervention and personal management. The time I documented below is in addition to time spent performing reported procedures but includes the following listed in this critical care notation. Medical Decision Making - Medical Records Medical records reviewed: Yes: I reviewed the patient's medical records. - Ray Inquiry Pt receiving controlled substance: No Vital Signs: 10/30/21 10:06 Temperature 98.4 F Temperature Source Oral Pulse Rate [Right Radial] 102 H Respiratory Rate 22 Blood Pressure [Right Arm] 160/108 H Blood Pressure Mean [Right Arm] 125 Blood Pressure Source [Right Arm] Automatic Cuff Blood Pressure Position [Right Arm] Sitting 02 Sat by Pulse Oximetry 97 Oxygen Delivery Method Room Air - Lab Data Lab results reviewed: Yes: I reviewed the patient's lab results. Lab Results 10/30/21 10:15: Urine HCG, Qual Negative 10/30/21 10:45: WBC 7.4, RBC 5.43 H, Hgb 16.6 H, Hct 47.0, MCV 86.6, MCH 30.6, MCHC 35.3, RDW 13.6, Plt Count 311, MPV 7.7, Neut % (Auto) 61.9, Lymph % (Auto) 28.8, [place] % (Auto) 7.0, Eos % (Auto) 1.0, Baso % (Auto) 1.4, Neut # (Auto) 4.6, Lymph # (Auto) 2.1, [place] # (Auto) 0.5, Eos # (Auto) 0.1, Baso # (Auto) 0.1 10/30/21 10:45: Sodium 144, Potassium 3.6, Chloride 103, Carbon Dioxide 29, Anion Gap 15.6 H, BUN 9, Creatinine 0.60, Estimated Creat Clear 155, Estimated GFR 112, Est GFR ( Amer) 135, Glucose 96, Calcium 10.7 H, Total Bilirubin 0.3, AST 39 H, ALT 31, Alkaline Phosphatase 123, Troponin I < 0.01, Total Protein 8.6 H, Albumin 4.9, Globulin 3.7 H, Albumin/Globulin Ratio 1.3, Lipase 86 10/30/21 12:45: Stool Occult Blood Positive A Result diagrams: 10/30/21 10:45 10/30/21 10:45 Orders (Tests/Meds): ED MEDICATIONS Generic Name Dose Route Start Last Admin Trade Name Freq PRN Reason Stop Dose Admin Sodium Chloride 10 ml 10/30/21 11:20 10/30/21 11:21 Sodium Chloride 0.9% 10ml Syr (Rad Only) IV 11/29/21 11:19 10 ml NEEDED PRN Administration Maintain IV Site Discontinued Medications Generic Name Dose Route Start Last Admin Trade Name Freq PRN Reason Stop Dose Admin Lactated Ringer's 1,000 mls @ 999 mls/hr 10/30/21 11:00 10/30/21 11:15 Lactated Ringer's 1000 Ml Bag IV 10/30/21 12:00 999 mls/hr .Q1H1M MARINA Administration Iopamidol 75 ml 10/30/21 11:20 10/30/21 11:21 Iopamidol-370 (76%);100ml Bottle IV 10/30/21 11:21 75 ml ONCE ONE Administration Methylprednisolone Sodium Succinate 60 mg 10/30/21 12:51 10/30/21 13:37 Methylprednisolone Sod Succ 125mg Vial IV 10/30/21 12:52 Not Given ONCE ONE Ondansetron HCl 4 mg 10/30/21 10:54 10/30/21 11:15 Ondansetron 4mg/2ml Vial IV 10/30/21 10:55 4 mg ONCE ONE Administration ORDERS Category Date Time Status Urinalysis and Microscopic Stat Lab 10/30/21 10:14 Ordered - ECG Data Tracing #1 I reviewed this ECG and interpreted as documented below: Normal sinus rhythm, 90 bpm, no ST elevation or depression, normal intervals, no ectopy. ECG initial impression date: 10/30/21 ECG initial impression time: 10:31 Medical Decision Narrative: 40yo F evaluated for abdominal pain with bright red blood per rectum. Patient no acute distress on initial evaluation. EKG reviewed as above. Patient has a stable H/H. Sent for CT of the abdomen pelvis IV contrast given her history of Crohn's. This shows possible mild colitis. Nursing went to give the patient steroid injection found she had removed her IV a
[2021-10-30 13:13] LABS: Occult Blood,Stool Positive (Negative)
[2021-10-30 13:35] VITALS: BP 0/0; PULSE 0; RESP 0; TEMP -17.7; TEMP 0; O2SAT 0
== END 2021-10-30 13:35 | disposition left against medical advice (07) ==
PROVIDERS: Emergency Provider Family Medicine; PCP Family Medicine
DX: K52.9 Noninfective gastroenteritis and colitis, unspecified (principal); K50.90 Crohn's disease, unspecified, without complications; K21.9 Gastro-esophageal reflux disease without esophagitis; E78.5 Hyperlipidemia, unspecified; F17.210 Nicotine dependence, cigarettes, uncomplicated
CPT/HCPCS: 74177; 80053; 81025; 82272; 83690; 84484; 85025; 93005; 96365; 96375; 99283; G0328; J2405; Q9967

== ENCOUNTER → 2021-12-04 09:49 | Outpatient (POV) | payer MEDICAID, SELFPAY ==
[2021-12-04 10:09] VITALS: BP 135/83; PULSE 70; RESP 18; O2SAT 98; BMI 28.3
--- NOTE | 2021-12-04 10:23 | HMH.PMCON ---
Assessment and Plan (1) Neck pain Status: Chronic Category: Medical Code(s): M54.2 - Cervicalgia (2) Mid back pain Status: Chronic Category: Medical Code(s): M54.9 - Dorsalgia, unspecified (3) Low back pain Status: Chronic Category: Medical Code(s): M54.50 - Low back pain, unspecified (4) Lumbar radiculopathy Status: Chronic Category: Medical Code(s): M54.16 - Radiculopathy, lumbar region (5) Cervical radiculopathy Status: Chronic Category: Medical Code(s): M54.12 - Radiculopathy, cervical region - Assessment and plan all Dx Assessment and Plan for all problems:: Patient is being consulted for neck, mid back, low back pain with cervical and lumbar radicular symptoms. She was referred to us by Dr. Perry. She is taking large doses of ibuprofen. She has tried physical therapy in the past along with continued home stretching. She also reports to have tried active therapy with minimal relief. She does not want to pursue any type of interventional therapies. She has been to the emergency room in October 2021 for worsening pain. She also says that she has been hospitalized recently for Crohn's disease. She is very tearful during conversation today. She has not had any recent imaging of her cervical, thoracic, or lumbar spine. The pain is worse at her neck at this time. We will proceed with an MRI cervical spine to determine pathology of pain. We will plan to follow-up with her in the clinic after MRI for further discussion and plan of care. Patient I did discuss tramadol, however, she is allergic to the medication. Patient has been instructed to contact the clinic with any concerns before the next appointment. Dr. Beltran has reviewed this note and agrees with this plan of care. This note was dictated using voice recognition software and make contain errors or omissions. HPI - Data of Consult Patient: new to practice Consult date: 12/04/21 Requesting Physician: Juliann Cui APRN - Consult Narrative Reason for consult: Neck pain, mid back pain, low back pain History of present illness: Ms. Rendon is a 40 year old female presents today for consultation for chronic neck, mid back, low back pain. She was referred to us by Dr. Perry. The patient says that she has pain from her neck to her entire spine. She does have right hip pain from a [address] accident many years ago. She does report to have pain in bilateral upper and lower extremities as well as numbness and tingling bilateral upper and lower extremities. She says that she is having numbness to her forehead. She describes vision changes with seeing spots . She also complains of dizziness with increase of blood pressure. The patient says that she was recently hospitalized for Crohn's flareup. She is scheduled to undergo a colonoscopy. She is very frustrated today due to not feeling as though she is getting any help with her pain symptoms. She did go to the emergency room on oral 10/21/2021 and says that she did not get much help at that time. She says she feels everyone treats her as though she is a drug addict. She says that she has taken tramadol in the past with side effects. She was unable to tolerate the medication. She does report to be taking high doses of ibuprofen. Patient's [facility] [phone] has been reviewed. The patient did get 10 pills of Baker at 7.5 mg the first week of October. This did not give her long-term relief. She did have a rotator cuff repair last year. She has tried physical therapy for more than 6 weeks. She says she did not get relief from this. She has also had injections, unable to determine dates of injections. She is not interested in further injective or interventional therapies. The patient does admit that she is unsure what type of treatment she is looking for. She says that she simply wants to get relief. She is tearful today and does say that she has had a 20-30+ weight gain due to mobility issue
== END ==
PROVIDERS: Visit Provider Clinical Nurse Specialist Family Health
DX: M54.2 Cervicalgia (principal); M54.50 Low back pain, unspecified; M54.16 Radiculopathy, lumbar region; M54.12 Radiculopathy, cervical region
CPT/HCPCS: 99202; G0463

== ENCOUNTER 2022-08-17 18:01 | Emergency (ER) | payer MEDICAID, SELFPAY ==
[2022-08-17 18:03] VITALS: BP 145/91; PULSE 93; RESP 16; TEMP 36.8; O2SAT 98; BMI 26.1
[2022-08-17 18:49] VITALS: BMI 26.1
--- NOTE | 2022-08-17 18:52 | XR_ITS ---
PROCEDURE INFORMATION: Exam: XR Chest Exam date and time: 08/17/22 07:16 PM Age: 41 years old Clinical indication: Other: Epigastric pain; Additional info: Upper abd pain TECHNIQUE: Imaging protocol: Radiologic exam of the chest. Views: 1 view. COMPARISON: CR XR CHEST 2V 06/12/21 08:11 PM FINDINGS: Lungs: Unremarkable. No consolidation. Pleural spaces: Unremarkable. No pleural effusion. No pneumothorax. Heart/Mediastinum: Unremarkable. No cardiomegaly. Bones/joints: Unremarkable. IMPRESSION: No acute findings.
[2022-08-17 19:04] LABS: Basophils # 0.1 K/mm3 (0-0.2); Basophils % 0.9 % (0.1-2.0); Eosinophils # 0.1 K/mm3 (0.0-0.4); Eosinophils % 0.6 % (0.1-12.0); Hematocrit 44.6 % (37.0-47.0); Hemoglobin 14.9 g/dL (12.2-16.2); Lymphocytes # 2.3 K/mm3 (0.7-4.5); Lymphocytes % 19.6 % (10-50); Mean Corpuscular HGB Conc 33.4 g/dL (31.8-35.4); Mean Corpuscular Hemoglobin 30.8 pg (27.0-31.2); Mean Corpuscular Volume 92.3 fl (81-99); Mean Platelet Volume 8.2 fl (7.4-10.4); Monocytes # 0.6 K/mm3 (0.1-1.0); Monocytes % 5.5 % (1.7-9.3); Neutrophils # 8.6 K/mm3 (1.8-7.8); Neutrophils % 73.4 % (37.0-80.0); Platelet Count 232 K/mm3 (142-424); Red Blood Count 4.83 M/mm3 (4.20-5.40); Red Cell Distribution Width 13.4 % (11.5-17.5); White Blood Count 11.8 K/mm3 (4.8-10.8)
--- NOTE | 2022-08-17 19:04 | CT_ITS ---
PROCEDURE INFORMATION: Exam: CT Abdomen And Pelvis With Contrast Exam date and time: 08/17/22 07:10 PM Age: 41 years old Clinical indication: Abdominal pain; Epigastric; Additional info: Epigastric pain TECHNIQUE: Imaging protocol: Computed tomography of the abdomen and pelvis with contrast. Radiation optimization: All CT scans at this facility use at least one of these dose optimization techniques: automated exposure control; mA and/or kV adjustment per patient size (includes targeted exams where dose is matched to clinical indication); or iterative reconstruction. Contrast material: ISOVUE; Contrast volume: 75 ml; Contrast route: IV; COMPARISON: CT ABDOMEN PELVIS W CON 10/30/21 11:02 AM FINDINGS: Tubes, catheters and devices: None noted. Lungs: Lung bases appear clear. Heart: No significant coronary calcifications. No cardiomegaly. No significant pericardial effusion. Liver: Normal. No mass. Gallbladder and bile ducts: Normal. No calcified stones. No ductal dilation. Pancreas: Normal. No ductal dilation. Spleen: Normal. No splenomegaly. Adrenal glands: Normal. No mass. Kidneys and ureters: Normal. No hydronephrosis. Stomach and bowel: Unremarkable. No obstruction. No mucosal thickening. Appendix: No evidence of appendicitis. Intraperitoneal space: Unremarkable. No free air. No significant fluid collection. Retroperitoneal space: No significant retroperitoneal inflammatory changes are noted. Vasculature: Unremarkable. No abdominal aortic aneurysm. Lymph nodes: Unremarkable. No enlarged lymph nodes. Urinary bladder: Unremarkable as visualized. Reproductive: Hysterectomy. Bones/joints: Unremarkable. No acute fracture. Soft tissues: Unremarkable. IMPRESSION: No acute findings.
[2022-08-17 19:08] LABS: Alanine Aminotransferase 33 U/L (12-78); Albumin Level 4.3 g/dl (3.5-5.0); Albumin/Globulin Ratio 1.3 (1.1-1.8); Alkaline Phosphatase 107 U/L (38-126); Anion Gap 13.3 mEq/L (5-15); Aspartate Amino Transferase 38 U/L (14-36); Bilirubin,Total 0.3 mg/dl (0.2-1.3); Blood Urea Nitrogen 14 mg/dl (7-17); Calcium 9.1 mg/dl (8.4-10.2); Carbon Dioxide 26 mmol/L (22.0-30.0); Chloride 101 mmol/L (98-107); Creatinine Clearance Estimated 146 mL/min (50-200); Estimated Glomerular Filt Rate 111 ml/min (>60); GFR (African American) 135 ML/MIN (>60); Globulin 3.4 g/dL (1.3-3.2); Glucose 110 mg/dl (74-100); Lipase 68 U/L (23-300); Potassium 3.3 mmoL/L (3.5-5.1); Sodium 137 mmol/L (136-145); Total Protein,Serum 7.7 g/dl (6.3-8.2)
[2022-08-17 19:26] LABS: Troponin I < 0.01 ng/ml (0.00-0.034)
[2022-08-17 19:29] LABS: HCG Qualitative, Serum Negative (Negative)
--- NOTE | 2022-08-17 20:49 | HMH.EDABDPAI ---
Discharge Plan Disposition Patient Disposition: Home, Self-Care Condition: Fair Prescriptions Prescriptions: New promethazine 25 mg tablet 25 mg PO TID PRN (Reason: nausea and vomiting) Qty: 30 0RF alum-mag hydroxide-simeth [Maalox Maximum Strength] 400-400-40 mg/5 mL suspension 5 ml PO Q4H PRN (Reason: indigestion) Qty: 355 0RF Referrals Follow up/Referrals: Rishi Perry MD [Primary Care Provider] - See instructions Activity Restrictions/Add. Instructions Additional Instructions/Restrictions: Please start taking Pepcid twice daily as well as Maalox to see if this helps with your pain. Please avoid taking ibuprofen. Please follow-up with Dr. Perry early next week to talk about potential upper GI scope. Clinical Impressions Clinical Impression: Acute epigastric pain Instructions Patient Instructions: DI for Acute Abdominal Pain Discharge ED Provider: Wilber Renteria Abdominal Pain HPI General Chief Complaint: Abdominal Pain Stated Complaint: Abd Pain Nausa,Shaking Fast Hear Beat Swelling Time Seen by Provider: 08/17/22 18:30 Mode of Arrival: Ambulatory Source of Information: Patient Limitations: No Limitations Description of Symptoms (Recalled from ER Triage Doc. by RN): pt with hx of crohn's c/o abd pain History of Present Illness HPI narrative: Patient is a 41-year-old female with a history of Crohn's disease who presents today with concern for epigastric pain. She states that over the last 4 days she has not been able to eat because every time she eats she suffers from severe epigastric pain. She describes it as a stabbing sensation. She says it is there constantly but intermittently worse. She has been constantly nauseous. She says that the pain does not move. She has a history of cholecystectomy. Denies any diarrhea or constipation. She says that she is only vomited 1 time and it was yellow. Denies any dysuria or hematuria. Denies any frequency. Denies any melena or hematemesis. Related Data Previous Rx's Medication Instructions Recorded aluminum-mag hydroxide-simethicone 5 ml PO Q4H PRN indigestion #355 mL 08/17/22 400 mg-400 mg-40 mg/5 mL oral susp (Maalox Maximum Strength) promethazine 25 mg tablet 25 mg PO TID PRN nausea and 08/17/22 vomiting #30 tabs Allergies Allergy/AdvReac Type Severity Reaction Status Date / Time acetaminophen AdvReac Nausea Verified 10/06/21 14:36 [From Tylenol-Codeine #3] codeine AdvReac Nausea Verified 10/06/21 14:36 [From Tylenol-Codeine #3] tramadol AdvReac Nausea Verified 10/06/21 14:36 [facility] Medical History (Updated 08/17/22 @ 20:49 by Wilber Renteria MD) Dizziness Family history of coronary artery disease Family history of sudden cardiac (SCD) SOB (shortness of breath) Tobacco abuse Social History Smoking Status: Current some day smoker tobacco type: cigarettes packs per day: 1 second hand exposure: Yes alcohol intake: never substance use type: denies use current occupational status: unemployed Travel in the last 8 weeks: None household members: spouse housing: house current occupational exposures/hazards: No caffeine: Yes ROS Obtained: Yes All systems reviewed & no additional complaints except as documented A 14 point review of system was obtained and otherwise negative except per HPI Physical Exam General General appearance: alert and in no apparent distress Head Head exam: atraumatic, normocephalic and normal inspection Eye Eye exam: Present normal appearance, PERRL and EOMI ENT ENT exam: Present normal exam, normal oropharynx, mucous membranes moist, TM's normal bilaterally and normal external ear exam Neck Neck exam: Present normal inspection, full ROM and trachea midline; Absent meningismus or lymphadenopathy Chest Chest inspection: Present normal inspection and symmetric chest wall rise; Absent tenderness Respiratory Respiratory exam: Present normal lung kimmie
[2022-08-17 21:03] VITALS: BP 135/90; PULSE 88; RESP 18; TEMP 36.6; O2SAT 99
== END 2022-08-17 21:19 | disposition home or self-care (01) ==
PROVIDERS: Emergency Provider Student in an Organized Health Care Education/Training Program; PCP Family Medicine
DX: R10.13 Epigastric pain (principal)
CPT/HCPCS: 71045; 74177; 80053; 83690; 84484; 84703; 85025; Q9967

== ENCOUNTER 2024-05-20 17:05 | Emergency (ER) | payer MEDICAID, SELFPAY ==
[2024-05-20 17:07] VITALS: BP 137/88; PULSE 85; RESP 18; TEMP 36.9; O2SAT 96; BMI 25.2
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
--- NOTE | 2024-05-20 17:44 | PC.NURSE ---
PT states that she does not want to stay here for hours and wants to leave, pt states she has been through this before and knows she needs an MRI and that cant be completed tonight, she knows this all to well. Pt offered tylenol or motrin for pain, refused at this time. States she was unaware that a plain xray would not show a tear in her arm.
[2024-05-20 17:50] VITALS: BP 121/84; PULSE 73; RESP 16; TEMP 36.9; O2SAT 97
== END 2024-05-20 17:52 | disposition left against medical advice (07) ==
PROVIDERS: Emergency Provider Student in an Organized Health Care Education/Training Program
DX: S46.911A Strain of unspecified muscle, fascia and tendon at shoulder and upper arm level, right arm, initial encounter (principal); M25.511 Pain in right shoulder; F17.210 Nicotine dependence, cigarettes, uncomplicated; X50.0XXA Overexertion from strenuous movement or load, initial encounter
CPT/HCPCS: 99282

== ENCOUNTER 2024-08-19 17:15 | Emergency (ER) | payer MEDICAID, SELFPAY ==
[2024-08-19 17:15] VITALS: BP 163/92; PULSE 71; RESP 14; TEMP 36.7; O2SAT 99; BMI 23.8
--- NOTE | 2024-08-19 17:18 | ECG_ITS ---
APPROVED REPORT Exam: Resting ECG HR:72 bpm ECG Measurements Heart Rate 72 AXES MA 129 P 67 QRSd 84 QRS 93 QT 382 T 57 QTc 406 Conclusion SINUS RHYTHM BORDERLINE RIGHT AXIS DEVIATION [QRS AXIS > 90] LOW QRS VOLTAGE IN PRECORDIAL LEADS [QRS DEFLECTION < 1.0 mV IN CHEST LEADS] BORDERLINE ECG Electronically signed by : MALIA ALAN, 08/19/2024 22:20:54
--- NOTE | 2024-08-19 17:20 | PC.NURSE ---
Dr. Torrez at bedside for pt eval
[2024-08-19 17:21] VITALS: BP 131/77; PULSE 66; RESP 15; O2SAT 98
--- NOTE | 2024-08-19 17:25 | XR_ITS ---
PROCEDURE INFORMATION: Exam: XR Chest Exam date and time: 08/19/2024 6:26 PM Age: 43 years old Clinical indication: Pain; Chest pressure; Additional info: Epigastric/chest pain TECHNIQUE: Imaging protocol: Radiologic exam of the chest. Views: 2 views. COMPARISON: CR XR CHEST PORTABLE 08/17/2022 7:16 PM FINDINGS: Lungs: Normal. Pleural spaces: Normal. No pleural effusion. No pneumothorax. Heart/Mediastinum: Normal. No cardiomegaly. Bones/joints: Unremarkable. IMPRESSION: No acute findings.
--- NOTE | 2024-08-19 17:25 | CT_ITS ---
PROCEDURE INFORMATION: Exam: CT Abdomen And Pelvis With Contrast Exam date and time: 08/19/2024 6:34 PM Age: 43 years old Clinical indication: Abdominal pain; Epigastric; Additional info: Epigastric pain/nausea TECHNIQUE: Imaging protocol: Computed tomography of the abdomen and pelvis with contrast. Radiation optimization: All CT scans at this facility use at least one of these dose optimization techniques: automated exposure control; mA and/or kV adjustment per patient size (includes targeted exams where dose is matched to clinical indication); or iterative reconstruction. Contrast material: ISOVUE; Contrast volume: 75 ml; Contrast route: IV; COMPARISON: CT ABDOMEN PELVIS W CON 08/17/2022 7:10 PM FINDINGS: Lungs: Mild dependent atelectasis at the lung bases. Liver: Normal. No mass. Gallbladder and biliary ducts: Status post cholecystectomy. No significant biliary ductal dilitation. Pancreas: Normal. No ductal dilation. Spleen: Calcified granulomas in the spleen. No splenomegaly. Adrenal glands: Normal. No mass. Kidneys and ureters: Normal. No hydronephrosis. Stomach and bowel: Unremarkable. No obstruction. No mucosal thickening. Appendix: No evidence of appendicitis. Intraperitoneal space: Unremarkable. No free air. No significant fluid collection. Vasculature: Unremarkable. No abdominal aortic aneurysm. Lymph nodes: Unremarkable. No enlarged lymph nodes. Urinary bladder: Unremarkable as visualized. Reproductive: Status post hysterectomy. No adnexal masses. Bones/joints: Mild lumbar spine degenerative change. Soft tissues: Unremarkable. IMPRESSION: No acute findings.
--- NOTE | 2024-08-19 17:28 | HMH.EDGENADL ---
Discharge Plan Disposition Patient Disposition: Home, Self-Care Condition: Good Prescriptions Prescriptions: New pantoprazole 40 mg tablet,delayed release (DR/EC) 40 mg PO DAILY Qty: 30 1RF ondansetron 4 mg tablet,disintegrating 4 mg PO Q8H PRN (Reason: nausea and vomiting) 4 Days Qty: 12 0RF dicyclomine 20 mg tablet 20 mg PO QID PRN (Reason: abdominal pain) Qty: 20 0RF No Action duloxetine [Cymbalta] 30 mg capsule,delayed release(DR/EC) 30 mg PO DAILY Qty: 90 3RF promethazine 25 mg tablet 25 mg PO TID PRN (Reason: nausea and vomiting) Qty: 30 0RF alum-mag hydroxide-simeth [Maalox Maximum Strength] 400-400-40 mg/5 mL suspension 5 ml PO Q4H PRN (Reason: indigestion) Qty: 355 0RF Referrals Follow up/Referrals: Christiano Laughlin MD [Staff Physician] - See instructions Mike Ham DO [Staff Physician] - See instructions Provider,MD Hipolito [Primary Care Provider] - See instructions Activity Restrictions/Add. Instructions Additional Instructions/Restrictions: You were evaluated in the emergency department today. Please roll picker your prescriptions at the pharmacy. Take the pantoprazole daily as prescribed and take the other medications as needed for symptoms. Return to the emergency department right away for new or worsening symptoms. Follow-up closely with a primary care provider as well as with gastroenterology. We have provided you with information for these specialties. You will need to call them to schedule an appointment. Clinical Impressions Clinical Impression: Epigastric pain, Gastritis Stand Alone Forms Stand Alone Forms: Work/School Release Instructions Patient Instructions: DI for Gastritis, DI for Epigastric Pain Print Language Print Language: Romanian Discharge ED Provider: Estella Torrez General Adult HPI General Chief complaint: Chest Pain Stated complaint: Epigastric pain Time Seen by Provider: 08/19/24 17:15 History of Present Illness HPI narrative: This patient is a 43-year-old female with a history of partial small bowel obstruction, reported possible diagnosis of Crohn's disease, GERD, and tobacco dependence presenting to the ED for evaluation with concern for epigastric pain and nausea. She reports it started yesterday. She has had spells like this in the past without identifiable triggers. Nothing seems to make it better or worse. She is s/p cholecystectomy. She denies any fevers, vomiting, changes in bowel movements, or urinary symptoms. She does note it causes her to hyperventilate and then she gets twitching and cramps in her arms. No other concerns noted at this time. No h/o alcohol use. She does have family history of early CAD and sudden cardiac . Related Data Previous Rx's ?Medication ?Instructions ?Recorded aluminum-mag hydroxide-simethicone 5 ml PO Q4H PRN indigestion #355 mL 08/17/22 400 mg-400 mg-40 mg/5 mL oral susp (Maalox Maximum Strength) promethazine 25 mg tablet 25 mg PO TID PRN nausea and 08/17/22 vomiting #30 tabs duloxetine 30 mg capsule,delayed 30 mg PO DAILY #90 caps 10/02/23 release (Cymbalta) dicyclomine 20 mg tablet 20 mg PO QID PRN abdominal pain 08/19/24 #20 tabs ondansetron 4 mg disintegrating 4 mg PO Q8H PRN nausea and 08/19/24 tablet vomiting 4 days #12 tabs pantoprazole 40 mg tablet,delayed 40 mg PO DAILY #30 tabs 08/19/24 release Allergies Allergy/AdvReac Type Severity Reaction Status Date / Time acetaminophen AdvReac Nausea Verified 10/02/23 10:04 [From Tylenol-Codeine #3] codeine AdvReac Nausea Verified 10/02/23 10:04 [From Tylenol-Codeine #3] tramadol AdvReac Nausea Verified 10/02/23 10:04 [facility] Disclaimer: The information contained in this section may have been updated after the patient was seen, as this information can be updated by other users. Medical History Family history of sudden cardiac (SCD) Family history of coronary artery disease Tobacco abuse SOB (shortness of breath) Dizziness Social History Smoking Status: Current every day smoker tobacco type: cigarettes packs per day: 1 second hand exposure: Yes alcohol intake: never substance use type: denies use current occupational status: unemployed Travel in the last 8 weeks: None household members: spouse housing: house current occupational exposures/hazards: No caffeine: Yes ROS Obtained: Yes All systems reviewed & no additional complaints except as documented Physical Exam General General appearance: alert and anxious Head Head exam: atraumatic and normocephalic Eye Eye exam: Present normal appearance, PERRL and EOMI ENT ENT exam: Present normal exam, normal oropharynx, mucous membranes moist and normal external ear exam Neck Neck exam: Present normal inspection, full ROM and trachea midline; Absent tenderness Chest Chest inspection: Present normal inspection and symmetric chest wall rise; Absent tenderness Respiratory Respiratory exam: Present normal lung sounds bilaterally; Absent respiratory distress, wheezes, stridor or accessory muscle use Cardiovascular Cardiovascular exam: Present regular rate and normal rhythm Abdominal Exam Abdominal exam: Present soft, tenderness (epigastric) and normal bowel sounds; Absent distention, guarding, rebound or rigidity Extremities Exam Extremities exam: Present normal inspection, full ROM and normal capillary refill; Absent tenderness or edema Back Exam Back exam: Present normal inspection and full ROM; Absent tenderness Neurological Exam Neurological exam: Present alert, oriented X3, CN II-XII intact and normal gait; Absent motor sensory deficit Psychiatric Psychiatric exam: Present normal affect and normal mood Skin Skin exam: Present warm and dry Medical Decision Making Medical Records Medical records reviewed: Yes I reviewed the patient's medical records. Screening: Per USPSTF and CDC recommendations, given the prevalence of disease in our region, it is our hospital?s policy to screen for HIV and viral Hepatitis for all patients aged 18 and over and those with ongoing risk factors. Ray Inquiry Pt receiving controlled substance: No Vital Signs: 08/19/24 17:15 08/19/24 17:21 08/19/24 17:30 Temperature 98.0 F Temperature Source Oral Pulse Rate 66 Pulse Rate [Left Radial] 71 Respiratory Rate 14 15 15 Blood Pressure 131/77 111/78 Blood Pressure [Right Arm] 163/92 H Blood Pressure Mean [Right Arm] 115 Blood Pressure Source Blood Pressure Position 02 Sat by Pulse Oximetry 99 98 Oxygen Delivery Method Room Air 08/19/24 18:00 08/19/24 19:40 Temperature 98.6 F Temperature Source Oral Pulse Rate 60 Pulse Rate [Left Radial] Respiratory Rate 12 18 Blood Pressure 112/76 125/84 Blood Pressure [Right Arm] Blood Pressure Mean [Right Arm] Blood Pressure Source Automatic Cuff Blood Pressure Position Supine 02 Sat by Pulse Oximetry Oxygen Delivery Method Room Air Lab Data Lab results reviewed: Yes I reviewed the patient's lab results. Lab Results 08/19/24 17:25: WBC 11.8 H, RBC 4.86, Hgb 15.0, Hct 46.2, MCV 95.1, MCH 30.9, MCHC 32.4, RDW 14.1, Plt Count 276, MPV 7.7, Neut % (Auto) 67.5, Lymph % (Auto) 24.3, Band[place] % (Auto) 5.7, Eos % (Auto) 1.5, Baso % (Auto) 1.0, Neut # (Auto) 8.0 H, Lymph # (Auto) 2.9, [place] # (Auto) 0.7, Eos # (Auto) 0.2, Baso # (Auto) 0.1, Sodium 140, Potassium 3.5, Chloride 110 H, Carbon Dioxide 26, Anion Gap 7.5, BUN 6 L, Creatinine 0.60, Estimated Creat Clear 131, Estimated GFR 110, Est GFR ( Amer) 133, Glucose 109 H, Calcium 9.2, Total Bilirubin 0.5, AST 38 H, ALT 34, Alkaline Phosphatase 90, Troponin I < 0.01, Total Protein 8.0, Albumin 4.6, Globulin 3.4 H, Albumin/Globulin Ratio 1.4, Lipase 106, TSH 2.19, Thyroxine (T4) 11.2 H 08/19/24 17:44: Urine HCG, Qual Negative, HIV 1&2 Antibody Rapid Nonreactive 08/19/24 17:51: Urine Color Yellow, Urine Appearance Clear, Urine pH 7.0, Ur Specific [place] 1.010, Urine Protein Negative, Urine Glucose (UA) Negative, Urine Ketones Negative, Urine Blood Trace-i, Urine Nitrate Negative, Urine Bilirubin Negative, Urine Urobilinogen 0.2, Ur Leukocyte Esterase Negative, Urine RBC 3-5, Urine WBC Occasional, Ur Squamous Epith Cells Occasional 08/19/24 17:25 08/19/24 17:25 Orders (Tests/Meds): ED MEDICATIONS Discontinued Medications Generic Name Dose Route Start Last Admin Trade Name Freq PRN Reason Stop Dose Admin Belladonna Alkaloids 60 ml 08/19/24 17:25 08/19/24 17:41 Belladonna Alkaloids 60 Ml Ml PO 08/19/24 17:26 60 ml ONCE ONE Administration Dicyclomine HCl 20 mg 08/19/24 19:03 08/19/24 19:12 Dicyclomine 10mg Capsule PO 08/19/24 19:04 20 mg ONCE ONE Administration Lactated Ringer's 1,000 mls @ 999 mls/hr 08/19/24 18:07 08/19/24 18:13 Lactated Ringer's 1000 Ml Bag IV 08/19/24 19:07 999 mls/hr .Q1H1M ONE Administration Iopamidol 75 ml 08/19/24 18:35 08/19/24 18:38 Iopamidol-370 (76%);100ml Bottle IV 08/19/24 18:36 75 ml ONCE ONE Administration Ondansetron HCl 4 mg 08/19/24 18:07 08/19/24 18:13 Ondansetron 4mg/2ml Vial IV 08/19/24 18:08 4 mg ONCE ONE Administration Pantoprazole Sodium 40 mg 08/19/24 17:25 08/19/24 17:41 Pantoprazole 40mg Tablet PO 08/19/24 17:26 40 mg ONCE ONE Administration Sodium Chloride 10 ml 08/19/24 18:35 08/19/24 18:38 Sodium Chloride 0.9% 10ml Syr (Rad Only) IV 09/18/24 18:34 10 ml NEEDED PRN Administration Maintain IV Site ORDERS Category Date Time Status CT abdomen pelvis w con Stat Cat Scan 08/19/24 17:25 Completed CXR 2 view (NOT portable) [XR chest 2V] Stat Exams 08/19/24 17:25 Completed Complete Blood Count Auto Diff Stat Lab 08/19/24 17:25 Completed Comprehensive Metabolic Panel Stat Lab 08/19/24 17:25 Completed HIV (1&2) Antibody Rapid Stat Lab 08/19/24 17:44 Completed Hep C Ab with Reflex to RNA Stat Lab 08/19/24 17:44 Received Lipase Stat Lab 08/19/24 17:25 Completed T4 (Thyroxine) Stat Lab 08/19/24 17:25 Completed TSH [Thyroid Stimulating Hormone] Stat Lab 08/19/24 17:25 Completed Trop I [Troponin I] Stat Lab 08/19/24 17:25 Completed UA [Urinalysis and Microscopic] Stat Lab 08/19/24 17:51 Completed Urine , HCG Qual. Stat Lab 08/19/24 17:44 Completed ECG Data Tracing #1: I reviewed this ECG and interpreted as documented below: Normal sinus rhythm with a ventricular rate of 72 beats per minute with no acute ST changes concerning for ischemia. Borderline right axis deviation. Normal intervals. Unchanged from prior ECG. ECG initial impression date: 08/19/24 ECG initial impression time: 17:20 Medical Decision Narrative: In summary, this patient is a 43-year-old female presenting to the Emergency Department for evaluation of epigastric pain and nausea. Differential diagnoses considered include but are not limited to ACS, pancreatitis, hepatitis, colitis, gastritis, GERD, peptic ulcer disease. She also has other symptoms including spasms of her upper extremities and hyperventilation, which I feel is related to anxiety secondary to her symptoms. Ruling out the most morbid conditions drove assessment. I reviewed patient's past medical records and noted previous evaluation for similar issues in the past. On exam, the patient is anxious appearing but is otherwise in no acute distress with reassuring vital signs on cardiac telemetry. She has epigastric tenderness but no rebound or guarding. Exam is otherwise reassuring. EKG was obtained and is unchanged from prior EKG. Workup included a urinalysis, CBC, CMP, lipase, troponin, chest x-ray, and CT abdomen and pelvis with IV contrast. Patient was given a bolus of IV fluids as well as pantoprazole, GI cocktail, and Zofran for symptomatic improvement. I independently interpreted CT scan and chest x-ray prior to the radiologist read and noted no obvious acute focal consolidation on x-ray and no obvious bowel obstruction or acute inflammation of her pancreas. Please see their read for final interpretation. Labs were obtained that demonstrated no acutely concerning abnormalities. Troponin negative, lipase normal, liver enzymes and bilirubin normal, white count normal. Urine not concerning for infection. On reassessment, patient had some improvement after administration of interventions above. It is possible this could be related to Crohn's disease, which she has not followed up for. It is also possible could be related to peptic ulcer disease/GERD. Ultimately, I feel we have excluded acute life-threatening pathology. I advised we could keep the patient healing up to obtain a second troponin given her symptoms, but the patient does not want to stay wait for this as she states that she thinks that her heart is okay. I feel she is appropriate for discharge home with prescriptions for PPI and Zofran as well as instructions for close outpatient follow-up with both gastroenterology and primary care. She is agreeable with this plan. She was given strict return precautions and was discharged in stable condition. Critical Care Critical Care Time Critical Care Time: No
[2024-08-19 17:30] VITALS: BP 111/78; RESP 15
[2024-08-19 17:40] LABS: Basophils # 0.1 K/mm3 (0-0.2); Eosinophils # 0.2 K/mm3 (0.0-0.4); Eosinophils % 1.5 % (0.1-12.0); Hematocrit 46.2 % (37.0-47.0); Lymphocytes # 2.9 K/mm3 (0.7-4.5); Lymphocytes % 24.3 % (10-50); Mean Corpuscular HGB Conc 32.4 g/dL (31.8-35.4); Mean Corpuscular Hemoglobin 30.9 pg (27.0-31.2); Mean Corpuscular Volume 95.1 fl (81-99); Mean Platelet Volume 7.7 fl (7.4-10.4); Monocytes # 0.7 K/mm3 (0.1-1.0); Monocytes % 5.7 % (1.7-9.3); Neutrophils % 67.5 % (37.0-80.0); Platelet Count 276 K/mm3 (142-424); Red Blood Count 4.86 M/mm3 (4.20-5.40); Red Cell Distribution Width 14.1 % (11.5-17.5); White Blood Count 11.8 K/mm3 (4.8-10.8)
[2024-08-19] MEDS: BELLADONNA ALKALOIDS 60 ML ML PO (17:41)
[2024-08-19] MEDS: PANTOPRAZOLE 40MG TABLET 40 MG PO (17:41)
[2024-08-19 17:53] LABS: Appearance,Urine CLEAR (Clear); Bilirubin,Urine Negative (Negative); Blood, Urine TRACE-I (Negative); Color,Urine YELLOW (Yellow); Glucose,Urine (UA) Negative (Negative); Ketones,Urine Negative (Negative); Leukocyte Esterase,Urine Negative (Negative); Microscopic, Urine URINE MICROSCOPIC (MICROSCOPIC); Nitrate,Urine Negative (Negative); Protein,Urine Negative (Negative); Urobilinogen,Urine 0.2 EU/dl (0.2)
[2024-08-19 17:56] LABS: Albumin Level 4.6 g/dl (3.5-5.0); Chloride 110 mmol/L (98-107); Potassium 3.5 mmoL/L (3.5-5.1); Sodium 140 mmol/L (136-145)
[2024-08-19 17:56] LABS: Urine Pregnancy, HCG Qual. Negative (Negative)
[2024-08-19 17:58] LABS: Alanine Aminotransferase 34 U/L (12-78); Blood Urea Nitrogen 6 mg/dl (7-17); Creatinine Clearance Estimated 131 mL/min (50-200); Estimated Glomerular Filt Rate 110 ml/min (>60); GFR (African American) 133 ML/MIN (>60)
[2024-08-19 17:59] LABS: Albumin/Globulin Ratio 1.4 (1.1-1.8); Alkaline Phosphatase 90 U/L (38-126); Anion Gap 7.5 mEq/L (5-15); Aspartate Amino Transferase 38 U/L (14-36); Bilirubin,Total 0.5 mg/dl (0.2-1.3); Calcium 9.2 mg/dl (8.4-10.2); Carbon Dioxide 26 mmol/L (22.0-30.0); Globulin 3.4 g/dL (1.3-3.2); Glucose 109 mg/dl (74-100); Lipase 106 U/L (23-300)
[2024-08-19 18:00] VITALS: BP 112/76; RESP 12
[2024-08-19 18:06] LABS: Squamous Epithelial Cell,Urine Occasional #/hpf (0-5); WBC,Urine Occasional #/hpf (0-3)
[2024-08-19] MEDS: LACTATED RINGERS 1000ML 1,000 ML 999 ML IV (18:13)
[2024-08-19] MEDS: ONDANSETRON 4MG/2ML VIAL 4 MG IV (18:13)
[2024-08-19 18:16] LABS: T4 (Thyroxine) 11.2 ug/dl (5.53-11.0)
[2024-08-19 18:30] LABS: Thyroid Stimulating Hormone 2.19 uIU/mL (0.465-4.68)
[2024-08-19 18:37] LABS: Troponin I < 0.01 ng/ml (0.00-0.034)
[2024-08-19] MEDS: IOPAMIDOL-370 (76%);100ML BOTTLE 75 ML IV (18:38)
[2024-08-19] MEDS: SODIUM CHLORIDE 0.9% 10ML SYR (RAD ONLY) 10 ML IV (18:38)
--- NOTE | 2024-08-19 18:40 | PC.NURSE ---
PT RETURNED FROM CT
[2024-08-19] MEDS: DICYCLOMINE 10MG CAPSULE 20 MG PO (19:12)
[2024-08-19 19:40] VITALS: BP 125/84; PULSE 60; RESP 18; TEMP 37; O2SAT 99
[2024-08-19 19:53] LABS: HIV (1&2) Antibody Rapid NONREACTIVE (NONREACTIVE)
[2024-08-21 05:13] LABS: HCV Ab Non Reactive (Non Reactive)
== END 2024-08-19 19:45 | disposition home or self-care (01) ==
PROVIDERS: Emergency Provider Emergency Medicine
DX: R10.13 Epigastric pain (principal); K29.70 Gastritis, unspecified, without bleeding; R11.0 Nausea; K21.9 Gastro-esophageal reflux disease without esophagitis
CPT/HCPCS: 71046; 74177; 80050; 80053; 81001; 81025; 83690; 84436; 84443; 84484; 85025; 86803; 87389; 93005; 96361; 96374; 99285; J2405; J7120; Q9967

== ENCOUNTER 2025-06-07 16:19 | Emergency (ER) | payer MEDICAID, SELFPAY ==
[2025-06-07] VITALS (8 sets, daily range): BP systolic 113–139; BP diastolic 73–84; PULSE 53–71; RESP 14–21; TEMP 36.8–37.4; O2SAT 97–99; BMI 29.9
--- NOTE | 2025-06-07 16:20 | HMH.EDCP ---
Discharge Plan Disposition Patient Disposition: Home, Self-Care Condition: Good Prescriptions Prescriptions: No Action ondansetron 4 mg tablet,disintegrating 4 mg PO Q8H PRN (Reason: nausea and vomiting) 4 Days Qty: 12 0RF Referrals Follow up/Referrals: Christiano Laughlin II, MD [Staff Physician, Gastroenterology] - See instructions Mike Ham DO [Staff Physician, [facility]] - See instructions Rishi Perry MD [Primary Care Provider, [facility]] - See instructions Activity Restrictions/Add. Instructions Additional Instructions/Restrictions: As we discussed I am referring you both to cardiology and for a primary care provider. Please call to make your appointment. If you have any persistent new or worsening signs or symptoms you may return to the ER as needed. Clinical Impressions Clinical Impression: Chest pain Print Language Print Language: Nauruan Discharge ED Provider: Steve Vasquez HPI <MARINA Walker - Last Filed: 06/07/25 18:45> General Chief Complaint: Chest Pain Stated Complaint: Chest Pain Time Seen by Provider: 06/07/25 16:20 History of Present Illness HPI narrative: Patient presents for evaluation of chest pain. Patient states that she has had 3 days of persistent chest pain located in the middle of her chest. She stated today she felt like it was radiating up into her neck down her arm. She does not have a known cardiovascular history but does have a significant GI history with Crohn's and GERD. She has had a previous cholecystectomy and total abdominal hysterectomy. She denies any shortness of breath fever chills hemoptysis hematochezia melena nausea vomiting diarrhea. She does smoke a pack of cigarettes a day but is not on hormone replacement. She is not on any routine home medications currently either. Related Data Previous Rx's ?Medication ?Instructions ?Recorded ondansetron 4 mg disintegrating 4 mg PO Q8H PRN nausea and 08/19/24 tablet vomiting 4 days #12 tabs Allergies Allergy/AdvReac Type Severity Reaction Status Date / Time acetaminophen (From AdvReac Nausea Verified 01/08/25 10:16 Tylenol-Codeine #3) codeine (From AdvReac Nausea Verified 01/08/25 10:16 Tylenol-Codeine #3) tramadol AdvReac Nausea Verified 01/08/25 10:16 PFSH <MARINA Walker - Last Filed: 06/07/25 18:45> [facility] Disclaimer: The information contained in this section may have been updated after the patient was seen, as this information can be updated by other users. Medical History Family history of sudden cardiac (SCD) Family history of coronary artery disease Tobacco abuse SOB (shortness of breath) Dizziness Social History (Updated 01/08/25 @ 10:17 by Gilda Carmen MA) Smoking Status: Current every day smoker tobacco type: cigarettes packs per day: 1 second hand exposure: Yes alcohol intake: never substance use type: denies use current occupational status: employed Travel in the last 8 weeks?: None household members: spouse housing: house current occupational exposures/hazards: No caffeine: Yes Have you lived/traveled outside US in past 30 days?: No Contact w/someone who lives/traveled outside US past 30 days?: No Exposure to someone with infectious disease in past 14 days?: No Do you have a fever (greater than 100.4 F or 38 C)?: No Have you tested positive for COVID-19?: No Exposed to someone with COVID-19 in past 14 days?: No Do you have a sore throat?: No Do you have a cough?: No Do you have any weakness?: No Do you have any diarrhea?: No Are you experiencing any unusual bleeding?: No Do you have any muscle aches/pain?: No Do you have any abdominal pain?: No Are you experiencing loss of taste or smell?: No Other Medical History Have you received the Flu Vaccine for this season: No Have you received the Pneumonia Vaccine: No <MARINA Walker - Last Filed: 06/07/25 18:45> ROS Obtained: Yes Systems reviewed as appropriate & no additional complaints except as documented Physical Exam <MARINA Walker - Last Filed: 06/07/25 18:45> General General appearance: alert and in no apparent distress Respiratory Respiratory exam: Present normal lung sounds bilaterally Cardiovascular Cardiovascular exam: Present regular rate Neurological Exam Neurological exam: Present alert and oriented X3 HEART Score <MARINA Walker - Last Filed: 06/07/25 18:45> HEART Score HEART Score assessment performed?: Yes History (anamnesis): Slightly suspicious ECG: Normal Age: <45 years Risk factors: 1-2 risk factors Troponin: </= normal limit HEART Score: 1 <Steve Vasquez MD - Last Filed: 06/08/25 01:04> HEART Score HEART Score: 1 Critical Care <MARINA Walker - Last Filed: 06/07/25 18:45> Critical Care Time Critical Care Time: No Medical Decision Making <MARINA Walker - Last Filed: 06/07/25 18:45> Medical Records Medical records reviewed: Yes I reviewed the patient's medical records. Ray Inquiry Pt receiving controlled substance: No Vital Signs Vital Signs: 06/07/25 16:20 06/07/25 16:30 06/07/25 16:35 Temperature 99.4 F 98.2 F Temperature Source Oral Pulse Rate 69 Pulse Rate [Left Radial] 71 Respiratory Rate 21 19 Blood Pressure 119/78 Blood Pressure [Right Arm] 119/78 Blood Pressure Mean [Right Arm] 91 02 Sat by Pulse Oximetry 98 99 Oxygen Delivery Method Room Air 06/07/25 16:49 06/07/25 17:00 06/07/25 17:30 Temperature 98.8 F Temperature Source Pulse Rate 60 60 Pulse Rate [Left Radial] Respiratory Rate 14 Blood Pressure 113/73 120/84 Blood Pressure [Right Arm] Blood Pressure Mean [Right Arm] 02 Sat by Pulse Oximetry 97 97 Oxygen Delivery Method 06/07/25 18:01 06/07/25 18:41 Temperature 98.2 F Temperature Source Pulse Rate 53 L 55 L Pulse Rate [Left Radial] Respiratory Rate 20 Blood Pressure 116/79 139/81 Blood Pressure [Right Arm] Blood Pressure Mean [Right Arm] 02 Sat by Pulse Oximetry 99 Oxygen Delivery Method Room Air Lab Data Lab results reviewed: Yes I reviewed the patient's lab results. Labs: Lab Results 06/07/25 16:27: WBC 9.5, RBC 4.58, Hgb 14.0, Hct 41.4, MCV 90.4, MCH 30.6, MCHC 33.8, RDW 12.6, Plt Count 235, MPV 9.9, Neut % (Auto) 56.3, Lymph % (Auto) 32.2, [place] % (Auto) 8.2, Eos % (Auto) 2.2, Baso % (Auto) 0.8, Neut # (Auto) 5.3, Lymph # (Auto) 3.1, [place] # (Auto) 0.8, Eos # (Auto) 0.2, Baso # (Auto) 0.1, ESR 24 H, PT 10.9, INR 0.98, D-Dimer 0.83 H, Sodium 142, Potassium 3.7, Chloride 105, Carbon Dioxide 24, Anion Gap 16.7 H, BUN 11, Creatinine 0.80, Estimated Creat Clear 118, Estimated GFR 79, Est GFR ( Amer) 95, Glucose 100, Calcium 8.6, Phosphorus 3.0, Magnesium 2.0, Total Bilirubin 0.4, AST 27, ALT 17, Alkaline Phosphatase 80, Troponin I < 0.01, C-Reactive Protein TNP, Total Protein 8.0, Albumin 4.6, Globulin 3.4 H, Albumin/Globulin Ratio 1.4, Lipase 133, Procalcitonin 0.033, TSH 2.86, Free T4 Index 2.9 L, Thyroxine (T4) 10.1, T3 Uptake 31 06/07/25 16:27 06/07/25 16:27 Response Orders (Tests/Meds): ED MEDICATIONS Discontinued Medications Generic Name Dose Route Start Last Admin Trade Name Freq PRN Reason Stop Dose Admin Belladonna Alkaloids 60 ml 06/07/25 16:48 06/07/25 17:25 Belladonna Alkaloids 60 Ml Ml PO 06/07/25 16:49 60 ml ONCE ONE Administration Sodium Chloride 1,000 mls @ 999 mls/hr 06/07/25 16:48 06/07/25 17:25 Sod Chlor 0.9% 1000ml Bag IV 06/07/25 17:48 999 mls/hr .Q1H1M ONE Administration Ketorolac Tromethamine 15 mg 06/07/25 16:48 06/07/25 17:25 Ketorolac 30mg/Ml Vial IV 06/07/25 16:49 15 mg ONCE ONE Administration Ondansetron HCl 4 mg 06/07/25 16:48 06/07/25 17:25 Ondansetron 4mg/2ml Vial IV 06/07/25 16:49 4 mg ONCE ONE Administration ORDERS Category Date Time Status Chest XR 2 view (NOT portable) [XR chest 2V] Stat Exams 06/07/25 16:48 Completed CBC w/Auto Diff [Complete Blood Count Auto Diff] Stat Lab 06/07/25 16:27 Completed CMP [Comprehensive Metabolic Panel] Stat Lab 06/07/25 16:27 Completed CRP [C-Reactive Protein] Stat Lab 06/07/25 16:27 Completed D-Dimer Stat Lab 06/07/25 16:27 Completed ESR [Erythrocyte Sedimentation Rate] Stat Lab 06/07/25 16:27 Completed INR [Prothrombin Time INR] Stat Lab 06/07/25 16:27 Completed Lipase Stat Lab 06/07/25 16:27 Completed Magnesium Stat Lab 06/07/25 16:27 Completed Phosphorous Stat Lab 06/07/25 16:27 Completed Procalcitonin Stat Lab 06/07/25 16:27 Completed Thyroid Panel Stat Lab 06/07/25 16:27 Completed Trop I [Troponin I] Stat Lab 06/07/25 16:27 Completed MDM Narrative Medical Decision Narrative: In summary patient is a 44-year-old female who presents to the emergency department for evaluation of 3 days of chest pain. Patient is hemodynamic stable the blood pressure 119/78 pulse 69 respiratory rate 21 satting at 98% on room air upon arrival, afebrile at 99.4 and normal sinus rhythm on the bedside monitor. Physical exam is remarkable for well-nourished well-developed 44-year-old female does not currently in acute distress. There is no reproducible chest pain on palpation of the chest wall, breath sounds clear and equal bilaterally to the bases without adventitious sounds increased work of breathing or accessory muscle use, heart sounds are S1-S2 regular rate and rhythm without murmurs gallops rubs or thrills. There is no tenderness in the epigastrium and remainder of the abdomen is soft nontender no rebound no guarding no rigidity. Bowel sounds normal active.. Differential diagnosis includes ACS versus pneumonia versus esophagitis versus gastritis versus PE etc. Initial workup will be conducted with hematologic labs twelve-lead EKG plain Kome chest x-ray. Initial interventions include Tylenol Toradol GI cocktail. Initial workup reviewed by me shows that her hematologic labs are nonactionable and 3 days of continuous chest pain her troponin is undetectable. Patient's D-dimer is elevated however she is ruled out by Wells and PERC criteria for PE. Twelve-lead EKG showed normal sinus rhythm no evidence of ACS. Upon repeat evaluation patient reports that did she did not have any relief by the GI cocktail.. Given this mother remains diagnostic uncertainty of the cause of her symptoms we have essentially ruled out any serious or life-threatening condition and I believe the patient is appropriate and safe for discharge with referral to Dr. Ham to establish care with a PCP and a referral to gastroenterology for further investigation of potential GI causes. Patient verbalized understanding and agreement. <Steve Vasquez MD - Last Filed: 06/08/25 01:04> Vital Signs Vital Signs: 06/07/25 16:20 06/07/25 16:30 06/07/25 16:35 Temperature 99.4 F 98.2 F Temperature Source Oral Pulse Rate 69 Pulse Rate [Left Radial] 71 Respiratory Rate 21 19 Blood Pressure 119/78 Blood Pressure [Right Arm] 119/78 Blood Pressure Mean [Right Arm] 91 02 Sat by Pulse Oximetry 98 99 Oxygen Delivery Method Room Air 06/07/25 16:49 06/07/25 17:00 06/07/25 17:30 Temperature 98.8 F Temperature Source Pulse Rate 60 60 Pulse Rate [Left Radial] Respiratory Rate 14 Blood Pressure 113/73 120/84 Blood Pressure [Right Arm] Blood Pressure Mean [Right Arm] 02 Sat by Pulse Oximetry 97 97 Oxygen Delivery Method 06/07/25 18:01 06/07/25 18:41 Temperature 98.2 F Temperature Source Pulse Rate 53 L 55 L Pulse Rate [Left Radial] Respiratory Rate 20 Blood Pressure 116/79 139/81 Blood Pressure [Right Arm] Blood Pressure Mean [Right Arm] 02 Sat by Pulse Oximetry 99 Oxygen Delivery Method Room Air Lab Data Labs: Lab Results 06/07/25 16:27: WBC 9.5, RBC 4.58, Hgb 14.0, Hct 41.4, MCV 90.4, MCH 30.6, MCHC 33.8, RDW 12.6, Plt Count 235, MPV 9.9, Neut % (Auto) 56.3, Lymph % (Auto) 32.2, [place] % (Auto) 8.2, Eos % (Auto) 2.2, Baso % (Auto) 0.8, Neut # (Auto) 5.3, Lymph # (Auto) 3.1, [place] # (Auto) 0.8, Eos # (Auto) 0.2, Baso # (Auto) 0.1, ESR 24 H, PT 10.9, INR 0.98, D-Dimer 0.83 H, Sodium 142, Potassium 3.7, Chloride 105, Carbon Dioxide 24, Anion Gap 16.7 H, BUN 11, Creatinine 0.80, Estimated Creat Clear 118, Estimated GFR 79, Est GFR ( Amer) 95, Glucose 100, Calcium 8.6, Phosphorus 3.0, Magnesium 2.0, Total Bilirubin 0.4, AST 27, ALT 17, Alkaline Phosphatase 80, Troponin I < 0.01, C-Reactive Protein TNP, Total Protein 8.0, Albumin 4.6, Globulin 3.4 H, Albumin/Globulin Ratio 1.4, Lipase 133, Procalcitonin 0.033, TSH 2.86, Free T4 Index 2.9 L, Thyroxine (T4) 10.1, T3 Uptake 31 Response Orders (Tests/Meds): ED MEDICATIONS Discontinued Medications Generic Name Dose Route Start Last Admin Trade Name Freq PRN Reason Stop Dose Admin Belladonna Alkaloids 60 ml 06/07/25 16:48 06/07/25 17:25 Belladonna Alkaloids 60 Ml Ml PO 06/07/25 16:49 60 ml ONCE ONE Administration Sodium Chloride 1,000 mls @ 999 mls/hr 06/07/25 16:48 06/07/25 17:25 Sod Chlor 0.9% 1000ml Bag IV 06/07/25 17:48 999 mls/hr .Q1H1M ONE Administration Ketorolac Tromethamine 15 mg 06/07/25 16:48 06/07/25 17:25 Ketorolac 30mg/Ml Vial IV 06/07/25 16:49 15 mg ONCE ONE Administration Ondansetron HCl 4 mg 06/07/25 16:48 06/07/25 17:25 Ondansetron 4mg/2ml Vial IV 06/07/25 16:49 4 mg ONCE ONE Administration ORDERS Category Date Time Status Chest XR 2 view (NOT portable) [XR chest 2V] Stat Exams 06/07/25 16:48 Completed CBC w/Auto Diff [Complete Blood Count Auto Diff] Stat Lab 06/07/25 16:27 Completed CMP [Comprehensive Metabolic Panel] Stat Lab 06/07/25 16:27 Completed CRP [C-Reactive Protein] Stat Lab 06/07/25 16:27 Completed D-Dimer Stat Lab 06/07/25 16:27 Completed ESR [Erythrocyte Sedimentation Rate] Stat Lab 06/07/25 16:27 Completed INR [Prothrombin Time INR] Stat Lab 06/07/25 16:27 Completed Lipase Stat Lab 06/07/25 16:27 Completed Magnesium Stat Lab 06/07/25 16:27 Completed Phosphorous Stat Lab 06/07/25 16:27 Completed Procalcitonin Stat Lab 06/07/25 16:27 Completed Thyroid Panel Stat Lab 06/07/25 16:27 Completed Trop I [Troponin I] Stat Lab 06/07/25 16:27 Completed MDM Narrative Medical Decision Narrative: In summary patient is a 44-year-old female who presents to the emergency department for evaluation of 3 days of chest pain. Patient is hemodynamic stable the blood pressure 119/78 pulse 69 respiratory rate 21 satting at 98% on room air upon arrival, afebrile at 99.4 and normal sinus rhythm on the bedside monitor. Physical exam is remarkable for well-nourished well-developed 44-year-old female does not currently in acute distress. There is no reproducible chest pain on palpation of the chest wall, breath sounds clear and equal bilaterally to the bases without adventitious sounds increased work of breathing or accessory muscle use, heart sounds are S1-S2 regular rate and rhythm without murmurs gallops rubs or thrills. There is no tenderness in the epigastrium and remainder of the abdomen is soft nontender no rebound no guarding no rigidity. Bowel sounds normal active.. Differential diagnosis includes ACS versus pneumonia versus esophagitis versus gastritis versus PE etc. Initial workup will be conducted with hematologic labs twelve-lead EKG plain Kome chest x-ray. Initial interventions include Tylenol Toradol GI cocktail. Initial workup reviewed by me shows that her hematologic labs are nonactionable and 3 days of continuous chest pain her troponin is undetectable. Patient's D-dimer is elevated however she is ruled out by Wells and PERC criteria for PE. Twelve-lead EKG showed normal sinus rhythm no evidence of ACS. Upon repeat evaluation patient reports that did she did not have any relief by the GI cocktail.. Given this mother remains diagnostic uncertainty of the cause of her symptoms we have essentially ruled out any serious or life-threatening condition and I believe the patient is appropriate and safe for discharge with referral to Dr. Ham to establish care with a PCP and a referral to gastroenterology for further investigation of potential GI causes. Patient verbalized understanding and agreement. I was consulted by the CHANELLE, and we discussed the complexity of the problems being addressed. I approve the treatment and management plan for this patient's care in the emergency department, thus performing a substantive portion of the medical decision making. Steve Vasquez MD
--- NOTE | 2025-06-07 16:22 | ECG_ITS ---
APPROVED REPORT Exam: Resting ECG HR:85 bpm ECG Measurements Heart Rate 85 AXES DC 122 P 61 QRSd 90 QRS 57 QT 378 T 53 QTc 420 Conclusion SINUS RHYTHM INDETERMINATE AXIS LOW QRS VOLTAGE IN PRECORDIAL LEADS [QRS DEFLECTION < 1.0 mV IN CHEST LEADS] POSSIBLE RIGHT VENTRICULAR CONDUCTION DELAY [RSR (QR) IN V1/V2] BORDERLINE ECG Electronically signed by : ARPIT KINNEY, 06/08/2025 08:36:28
--- OUTSIDE RECORDS SUMMARY | 2025-06-07 16:25 | XMS_ITS | Clinical Summary ---
Author Organization [facility] Address [address] [place] [address] Phone Care Team Providers Care Jewelry Bearing Maker Name Role Phone Cody Gamble MD Primary Care Provider [phone] Allergies Active Allergy Reactions Criticality Noted Date Comments Codeine 06/18/2017 Tramadol Itching 05/15/2017 Medications methylPREDNISolo ne (MEDROL DOSPACK) 4 mg Oral Tablets, Dose PackIndications: Acquired subluxation of right shoulder, initial encounter follow package directions 21 Tablet 5 Active meloxicam (MOBIC) 15 mg Oral TabletIndication s:Acquired subluxation of right shoulder, initial encounter Take 1 Tablet by mouth daily. 30 Tablet 5 Active Active Problems Patient Care Coordination No te Formatting of this note migh t be different from the original. [facility] Controlled Substance Protocol Completed: A. Informed Consent Statement signed (ONCE) (date) 05/15/17 B. Controlled Substance Agreement signed (ONCE) (date) 05/15/17 C. Comprehensive Urine Drug Screen was performed (YEARLY) (date) 05/15/17 D. Ray report completed (EVERY 3 MONTHS) (date) 05/15/17 E. Screening tool for addiction (SOAPP) completed (YEARLY) (date) 05/15/17 F. Need for controlled substance is documented (EVERY VISIT) G. Pain Scale and or Functional capacity documented (EVERY VISIT) Pharmacy: [facility] No additional problems on file Surgical History Surgery Date Site/Laterality Comments LAPAROSCOPY times 3 COLONOSCOPY HYSTERECTOMY CHOLECYSTECTOMY SHOULDER ARTHROSCOPY 01/20/2021 Right RIGHT SHOULDER ARTHROSCOPIC ROTATOR CUFF REPAIR, SUBACROMIAL DECOMPRESSION, BICEPS TENODESIS; Surgeon: Jed Bella MD; Location: [facility] MAIN OR; Service: Orthopedics Medical devices from this surgery are in the Medical Devices section. Medical History Medical History Date Comments Crohn disease (HCC) Ovarian cyst Endometriosis Panic attack Social History Tobacco Use Types Packs/Day Years Used Date Smoking Tobacco: Every Day Cigarettes Smokeless Tobacco: Never Alcohol Use Standard Drinks/Week Comments Yes 0 (1 standard drink = 0.6 oz pur e alcohol) occas Comments No Sex and Gender Information Value Date Recorded Sex Assigned at Not on file Legal Sex Female 4:53 AM EDT Gender Identity Not on file Sexual Orientation Not on file Obstetrics History Last Filed Vital Signs Vital Sign Reading Time Taken Comments Blood Pressure 125/85 01/20/2021 12:00 PM EST Pulse 71 01/20/2021 12:00 PM EST Temperature 36.3 C (97.3 F) 01/20/2021 12:00 PM EST Respiratory Rate 18 01/20/2021 12:00 PM EST Oxygen Saturation 100% 01/20/2021 12:00 PM EST Inhaled Oxygen Concentration - - Weight 69.9 kg (154 lb) 01/08/2025 1:29 PM EST Height 165.1 cm (5' 5 ) 01/08/2025 1:29 PM EST Body Mass Index 25.63 01/08/2025 1:29 PM EST Plan of Treatment Health Maintenance Due Date Last Done Comments Annual Wellness Exam 1985 Hepatitis B Vaccine (1 of 3 - 19+ 3-dose series) 2001 Cervical Cancer Screening 2003 Pap Smear 2003 HPV/Pap Cotest 2012 DTaP/TDaP/Td (4 - Td or Tdap) 01/04/2020, 09/05/2008, 05/12/2001 Breast Cancer Screening 2022 COVID-19 Vaccine (2023-2 5 season) 2024 Influenza Vaccine (#1) 2025 10/03/2018 Meningococcal B Vaccine Aged Out No l onger eligible based on patient's age to complete this topic Pneumococcal Vaccine 0-49 Aged Out No longer eligible based on patient's age to complete this topic Medical Devices Implanted Type Area Financial Services Consultant Device Identifier Shelf Expiration Date Model / Serial / Lot Scott Sut Juggrknt 2.9mm Sz2 Mxbrd Cut Ndl - [id number] Implanted:Qt y: 1 on 01/20/2021 by Jed Bella MD at [facility] Right: Shoulder BIOMET [id number] 08/10/2025 [id number] / / [id number] Scott Sut Healix Advance 4.5mm Bcrl Rapide Wht/Blk - [id number] Implanted:Qt y: 1 on 01/20/2021 by Jed Bella MD at [facility] Right: Shoulder J&J:ETHICON:[facility] EK PRDT [id number] 08/31/2023 [id number] / / [id number] Scott Sut Healix Advance 4.5mm Bcrl Rapide Wht/Blk - [id number] Implanted:Qt y: 2 on 01/20/2021 by Jed Bella MD at [facility] Right: Shoulder J&J:ETHICON:[facility] EK PRDT [id number] 10/01/2023 [id number] / / [id number] Scott Sut Swivelk C 5.5x19.1mm Ft Kntls Twist-In Clsd Eylt - [id number] Implanted:Qt y: 1 on 01/20/2021 by Jed Bella MD at [facility] Right: Shoulder ARTHREX [id number] 10/01/2024 [id number] / / [id number] Scott Sut Swivelk C 5.5x19.1mm Ft Kntls Twist-In Clsd Eylt - [id number] Implanted:Qt y: 1 on 01/20/2021 by Jed Bella MD at [facility] Right: Shoulder ARTHREX [id number] 10/01/2024 [id number] / / [id number] Insurance [facility] Care Teams Jewelry Bearing Maker Relationship Specialty Start Date End Date Cody Gamble MD [address] [place] [id number] PCP - General Family Medicine 03/22/17
--- NOTE | 2025-06-07 16:48 | XR_ITS ---
PROCEDURE INFORMATION: Exam: XR Chest Exam date and time: 06/07/2025 4:59 PM Age: 44 years old Clinical indication: Pain; Other: General; Additional info: Chest pain TECHNIQUE: Imaging protocol: Radiologic exam of the chest. Views: 2 views. COMPARISON: CR XR CHEST 2V 08/19/2024 6:26 PM FINDINGS: Tubes, catheters and devices: Surgical clips overlie the gallbladder fossa. Lungs: Unremarkable. No consolidation. Pleural spaces: Unremarkable. No pleural effusion. No pneumothorax. Heart/Mediastinum: Unremarkable. No cardiomegaly. Bones/joints: Unremarkable. IMPRESSION: No acute findings.
[2025-06-07 16:57] LABS: Hematocrit 41.4 % (37.0-47.0); Hemoglobin 14.0 g/dL (12.2-16.2); Immature Granulocytes % 0.3 %; Mean Corpuscular HGB Conc 33.8 g/dL (31.8-35.4); Mean Corpuscular Hemoglobin 30.6 pg (27.0-31.2); Mean Corpuscular Volume 90.4 fl (81-99); Nucleated Red Blood Cells % 0 %; Platelet Count 235 K/mm3 (142-424); Red Blood Count 4.58 M/mm3 (4.20-5.40); Red Cell Distribution Width-SD 42.2 fL; White Blood Count 9.5 K/mm3 (4.8-10.8)
[2025-06-07 17:03] LABS: INR 0.98 (0.9-1.1); Prothrombin Time 10.9 seconds (10.1-12.5)
[2025-06-07 17:07] LABS: Alanine Aminotransferase 17 U/L (12-78); Albumin Level 4.6 g/dl (3.5-5.0); Albumin/Globulin Ratio 1.4 (1.1-1.8); Alkaline Phosphatase 80 U/L (38-126); Anion Gap 16.7 mEq/L (5-15); Aspartate Amino Transferase 27 U/L (14-36); Bilirubin,Total 0.4 mg/dl (0.2-1.3); Blood Urea Nitrogen 11 mg/dl (7-17); Calcium 8.6 mg/dl (8.4-10.2); Carbon Dioxide 24 mmol/L (22.0-30.0); Chloride 105 mmol/L (98-107); Creatinine Clearance Estimated 118 mL/min (50-200); Creatinine,Serum 0.80 mg/dl (0.52-1.04); Estimated Glomerular Filt Rate 79 ml/min (>60); GFR (African American) 95 ML/MIN (>60); Globulin 3.4 g/dL (1.3-3.2); Glucose 100 mg/dl (74-100); Lipase 133 U/L (23-300); Magnesium 2.0 mg/dl (1.6-2.3); Phosphorous 3.0 mg/dl (2.5-4.5); Potassium 3.7 mmoL/L (3.5-5.1); Sodium 142 mmol/L (136-145); Total Protein,Serum 8.0 g/dl (6.3-8.2)
[2025-06-07 17:23] LABS: Troponin I < 0.01 ng/ml (0.00-0.034)
[2025-06-07] MEDS: KETOROLAC 30MG/ML VIAL 15 MG IV (17:25)
[2025-06-07] MEDS: BELLADONNA ALKALOIDS 60 ML ML PO (17:25)
[2025-06-07] MEDS: 0.9 % SODIUM CHLORIDE 1000ML 1,000 ML 999 ML IV (17:25)
[2025-06-07] MEDS: ONDANSETRON 4MG/2ML VIAL 4 MG IV (17:25)
[2025-06-07 17:26] LABS: Procalcitonin 0.033 ng/mL (0.0-2.0)
[2025-06-07 17:27] LABS: Triiodothryronine (T3) Uptake 31 % (23.5-40.5)
[2025-06-07 17:54] LABS: Free Thyroxine Index 2.9 ug/dL (5.93-13.13); T4 (Thyroxine) 10.1 ug/dl (5.53-11.0)
[2025-06-07 18:06] LABS: D-Dimer 0.83 ug/mL (0.0-0.5)
[2025-06-07 18:08] LABS: Thyroid Stimulating Hormone 2.86 uIU/mL (0.465-4.68)
== END 2025-06-07 18:42 | disposition home or self-care (01) ==
PROVIDERS: Physician Assistant; Emergency Provider Student in an Organized Health Care Education/Training Program; PCP Family Medicine
DX: R07.9 Chest pain, unspecified (principal); F17.210 Nicotine dependence, cigarettes, uncomplicated
CPT/HCPCS: 71046; 80053; 83690; 83735; 84100; 84145; 84436; 84443; 84479; 84484; 85025; 85378; 85610; 85651; 93005; 96361; 96374; 96375; 99285; J1885; J2405; J7030